=== PATIENT | female | born 1960 | race Caucasian/White ===

== ENCOUNTER → 2018-03-09 13:00 | Outpatient (CLI) | payer OTHER, BC, SELFPAY | DX: Z23 Encounter for immunization (principal) | CPT/HCPCS: 90471; 90686 ==

== ENCOUNTER → 2018-11-07 08:52 | Outpatient (CLI) | payer OTHER, BC, SELFPAY ==
[2018-11-07 10:47] LABS: Cholesterol 249 mg/dL (140-199); Glucose 87 mg/dL (80-110); HDL Cholesterol 81 mg/dL (40-60); LDL Cholesterol Calculated 149 mg/dL (<100); Triglycerides 93 mg/dL (35-150)
== END ==
PROVIDERS: PCP Physician Assistant; Visit Provider Physician Assistant
DX: Z13.1 Encounter for screening for diabetes mellitus (principal); Z13.220 Encounter for screening for lipoid disorders; Z13.6 Encounter for screening for cardiovascular disorders
CPT/HCPCS: 36415; 80061; 82947

== ENCOUNTER → 2019-04-10 09:01 | Outpatient (CLI) | payer OTHER, BC, SELFPAY | PROVIDERS: PCP Physician Assistant | DX: Z23 Encounter for immunization (principal) | CPT/HCPCS: 90471; 90686 ==

== ENCOUNTER → 2020-01-23 13:59 | Outpatient (CLI) | payer OTHER, BC, SELFPAY ==
--- NOTE | 2020-01-23 14:01 | DI.RAD.S_ITS ---
PROCEDURE: XR KNEE RT 3V INDICATIONS: R knee pain TECHNIQUE: Three views of the knee were acquired. COMPARISON: [facility], , KNEE 3V RIGHT, 04/18/2017, 14:14. FINDINGS: Bones: No fractures or dislocations. Progressive joint space loss in the medial compartment and increase in mild marginal spur formation compared to the prior study. New small lateral compartment spurring and progressive patellofemoral compartment spurring. No suspicious bony lesions. Soft tissues: No joint effusion. No suspicious soft tissue calcifications. IMPRESSION: Progressive tricompartment osteoarthritic changes, most pronounced in the medial compartment. Dictated by: Magda Gallegos M.D. on 01/23/2020 at 18:18 Approved by: Magda Gallegos M.D. on 01/23/2020 at 18:20
== END ==
PROVIDERS: PCP Family Medicine; Referring Provider Family Medicine; Visit Provider Family Medicine
DX: M17.11 Unilateral primary osteoarthritis, right knee (principal); M25.561 Pain in right knee; G89.29 Other chronic pain
CPT/HCPCS: 73562

== ENCOUNTER → 2020-01-24 08:17 | Outpatient (CLI) | payer OTHER, BC, SELFPAY ==
[2020-01-24 08:38] LABS: Add Manual Diff / Slide Review NO; Basophils Absolute Auto 100 /uL (0-100); Basophils Percent Auto 1.2 % (0-2); Eosinophils Absolute Auto 100 /uL (0-450); Eosinophils Percent Auto 3.3 % (2-4); Hematocrit 43.3 % (36-46); Hemoglobin 15.5 g/dL (12.0-16.0); Lymphocytes Absolute Auto 1200 /uL (1100-4500); Lymphocytes Percent Auto 28.1 % (25-40); Mean Corpuscular HGB Conc 35.7 % (30-36); Mean Corpuscular Hemoglobin 33.7 PG (26-34); Mean Corpuscular Volume 94.4 fL (80-100); Monocytes Absolute Auto 400 /uL (0-900); Monocytes Percent Auto 8.5 % (3-14); Neutrophils Absolute Auto 2600 /uL (1500-7000); Neutrophils Percent Auto 58.9 % (50-75); Platelet Count 152 X10^3/uL (150-400); Red Blood Cell Count 4.59 X10^6/uL (4.0-5.2); Red Cell Distribution Width 12.2 % (11.6-14.8); White Blood Cell Count 4.4 X10^3/uL (4.5-11.0)
[2020-01-24 08:58] LABS: BUN Creatinine Ratio 17.4 (6-22); Blood Urea Nitrogen 12 mg/dL (7-17); Calcium 9.5 mg/dL (8.4-10.2); Carbon Dioxide 27 mmol/L (22-32); Chloride 105 mmol/L (98-107); Cholesterol 231 mg/dL (140-199); Estimated Glomerular Filt Rate > 60.0 mL/min (>60); Glucose 96 mg/dL (80-110); HDL Cholesterol 85 mg/dL (40-60); HEMOLYSIS < 15 (0-50); LDL Cholesterol Calculated 127 mg/dL (<100); Sodium 139 mmol/L (137-145); Triglycerides 97 mg/dL (35-150)
== END ==
PROVIDERS: PCP Family Medicine; Referring Provider Family Medicine; Visit Provider Family Medicine
DX: Z13.220 Encounter for screening for lipoid disorders (principal); Z68.30 Body mass index [BMI] 30.0-30.9, adult
CPT/HCPCS: 36415; 80048; 80061; 85025

== ENCOUNTER → 2020-01-30 08:46 | Outpatient (CLI) | payer OTHER, BC, SELFPAY ==
--- NOTE | 2020-01-30 13:27 | DI.MRI.S_ITS ---
PROCEDURE: MR KNEE RT WO CON INDICATIONS: R knee pain TECHNIQUE: Noncontrast sagittal PD fast spin echo and T2 fast spin echo with fat saturation, sagittal 3-D FLASH with fat saturation; coronal T1 spin echo and PD fast spin echo with fat saturation, and axial PD fast spin echo with fat saturation through the knee. COMPARISON: [facility], MR, KNEE WITHOUT CONTRAST, 04/29/2017, 10:03. FINDINGS: Image quality: Excellent. Menisci: There is peripheral displacement of medial meniscus bowing medial collateral ligament. Suggestion of interval partial meniscectomy with truncated appearance of body and posterior horn of medial meniscus. Signal abnormality is seen in posterior horn medial meniscal remnant extending to the inferior articulating surface. No evidence of focal lateral meniscal tear is seen The meniscal root ligaments appear intact. Cruciate ligaments: The anterior and posterior cruciate ligaments appear intact. Medial structures: The medial collateral ligament appears intact. The posterior oblique ligament, semimembranosus tendon insertions, oblique popliteal ligament, and meniscocapsular junction appear intact. Visualized portions of the pes anserinus tendons appear normal. No abnormal bursal fluid. Lateral structures: The lateral collateral ligament, long and short heads of the biceps femoris tendon appear intact. The popliteus tendon appears normal; the popliteofibular ligament appears intact. The posterosuperior and anteroinferior popliteomeniscal fascicles appear intact. The arcuate and fabellofibular ligaments appear intact, on either side of the lateral inferior geniculate artery. Iliotibial band appears normal. Anterior structures: The quadriceps and patellar tendons appear intact. Patellar alignment is normal. No femoral trochlear dysplasia or ventral trochlear prominence. No edema in the infrapatellar fat pad. Bones and cartilage: Mild to moderate chondromalacia and tricompartmental osteoarthritis is seen most prominent in medial femoral tibial compartment. Prominent subcortical cyst formation in posterior and lateral portion of patella is seen. No fracture or dislocation. Joint space: There is small amount of joint effusion. Small to moderate size popliteal cyst is seen and measures up to 2.5 x 1.8 x 4.8 cm in size.. Normal appearing synovial plicae are incidentally noted. IMPRESSION: 1. Truncated appearance of posterior horn and body of medial meniscus suggestive of interval partial meniscectomy versus chronic complex medial meniscal tear.. Peripheral displacement of medial meniscal remanent. Suggestion of oblique tear involving posterior horn medial meniscal remanent extending to inferior articulating surface. No evidence of focal lateral meniscal tear. 2. Cruciate ligaments are intact. 3. Mild to moderate tricompartmental osteoarthritis and chondromalacia more prominent in medial femoral tibial compartment as above. Small joint fluid. Popliteal cyst as above. Dictated by: Roshan Rajan M.D. on 01/30/2020 at 14:46 Approved by: Roshan Rajan M.D. on 01/30/2020 at 14:51
[2020-02-01 12:08] LABS: Fecal Immunochemical Test Positive (Negative)
== END ==
PROVIDERS: PCP Family Medicine; Referring Provider Family Medicine; Visit Provider Family Medicine
DX: M25.561 Pain in right knee (principal); M17.11 Unilateral primary osteoarthritis, right knee; M94.261 Chondromalacia, right knee; M71.21 Synovial cyst of popliteal space [Baker], right knee; G89.29 Other chronic pain; Z12.11 Encounter for screening for malignant neoplasm of colon
CPT/HCPCS: 73721; 82274

== ENCOUNTER → 2020-03-22 | Outpatient (CLI) | payer OTHER, SELFPAY | PROVIDERS: PCP Family Medicine; Referring Provider Internal Medicine; Visit Provider Internal Medicine | DX: Z23 Encounter for immunization (principal) | CPT/HCPCS: 90471; 90686 ==

== ENCOUNTER → 2020-05-22 14:19 | Outpatient (CLI) | payer OTHER, SELFPAY ==
[2020-05-22] MEDS: COVID-19 VACC(MODERNA-1)/PF 100 MCG/0.5 ML VIAL IM (14:24)
== END ==
PROVIDERS: PCP Family Medicine; Visit Provider Internal Medicine
DX: Z23 Encounter for immunization (principal)
CPT/HCPCS: 0011A; 91301

== ENCOUNTER → 2020-06-20 15:03 | Outpatient (CLI) | payer OTHER, SELFPAY ==
[2020-06-20] MEDS: COVID-19 VACC #2, MRNA(MOD) 100 MCG/0.5 ML VIAL IM (15:08)
== END ==
PROVIDERS: PCP Family Medicine; Visit Provider Internal Medicine
DX: Z23 Encounter for immunization (principal)
CPT/HCPCS: 0012A; 91301

== ENCOUNTER → 2021-05-02 08:56 | Outpatient (CLI) | payer BC, SELFPAY ==
--- NOTE | 2021-05-02 08:57 | DI.MG.S_ITS ---
BILATERAL DIGITAL SCREENING MAMMOGRAM 3D/2D WITH CAD: 05/02/2021 CLINICAL: Routine screening. Baseline exam. No prior exams were available for comparison. There are scattered fibroglandular elements in both breasts. Current study was also evaluated with a Computer Aided Detection (CAD) system. No significant masses, calcifications, or other findings are seen in either breast. IMPRESSION: NEGATIVE There is no mammographic evidence of malignancy. A 1 year screening mammogram is recommended. This exam was interpreted at Station ID: [id number]. NOTE: For mammograms, a report in lay terms will be sent to the patient. Approximately 15% of breast malignancies will not be visualized mammographically. In the management of a palpable breast mass, a negative mammogram must not discourage biopsy of a clinically suspicious lesion. Electronically Signed By: Remy euceda/marilyn:05/04/2021 07:52:12 letter sent: Normal Exam ACR BI-RADS Category 1: Negative [id number]
== END ==
PROVIDERS: PCP Family Medicine; Referring Provider Family Medicine; Visit Provider Family Medicine
DX: Z12.31 Encounter for screening mammogram for malignant neoplasm of breast (principal)
CPT/HCPCS: 77063; 77067

== ENCOUNTER → 2022-03-04 11:44 | Outpatient (CLI) | payer BC, SELFPAY ==
[2022-03-04 12:21] LABS: Add Manual Diff / Slide Review NO; Basophils Absolute Auto 100 /uL (0-100); Basophils Percent Auto 1.2 % (0-2); Eosinophils Absolute Auto 200 /uL (0-450); Eosinophils Percent Auto 3.9 % (2-4); Hematocrit 40.3 % (36-46); Hemoglobin 14.2 g/dL (12.0-16.0); Lymphocytes Absolute Auto 1600 /uL (1100-4500); Lymphocytes Percent Auto 31.2 % (25-40); Mean Corpuscular HGB Conc 35.1 % (30-36); Mean Corpuscular Hemoglobin 31.4 PG (26-34); Mean Corpuscular Volume 89.3 fL (80-100); Monocytes Absolute Auto 400 /uL (0-900); Monocytes Percent Auto 7.8 % (3-14); Neutrophils Absolute Auto 2800 /uL (1500-7000); Neutrophils Percent Auto 55.9 % (50-75); Platelet Count 168 X10^3/uL (150-400); Red Blood Cell Count 4.52 X10^6/uL (4.0-5.2); Red Cell Distribution Width 12.6 % (11.6-14.8); White Blood Cell Count 5.1 X10^3/uL (4.5-11.0)
[2022-03-04 12:34] LABS: BUN Creatinine Ratio 19.8 (6-22); Blood Urea Nitrogen 16 mg/dL (7-17); Calcium 9.3 mg/dL (8.4-10.2); Carbon Dioxide 28 mmol/L (22-32); Chloride 106 mmol/L (98-107); Estimated Glomerular Filt Rate > 60 mL/min (>60); Glucose 91 mg/dL (80-110); HEMOLYSIS < 15 (0-50); Potassium 3.9 mmol/L (3.4-5.1); Sodium 141 mmol/L (137-145)
== END ==
PROVIDERS: Family Provider Family Medicine; PCP Family Medicine; Referring Provider Orthopaedic Surgery; Visit Provider Orthopaedic Surgery
DX: Z01.818 Encounter for other preprocedural examination (principal); Z01.812 Encounter for preprocedural laboratory examination
CPT/HCPCS: 36415; 80048; 85025; 93005; 93010

== ENCOUNTER → 2022-03-12 16:38 | Outpatient (CLI) | payer BC, SELFPAY | PROVIDERS: Family Provider Family Medicine; PCP Family Medicine; Referring Provider Internal Medicine; Visit Provider Internal Medicine | DX: Z23 Encounter for immunization (principal) | CPT/HCPCS: 90471; 90686 ==

== ENCOUNTER → 2022-04-05 11:04 | Outpatient (CLI) | payer BC, SELFPAY ==
[2022-04-05 12:10] LABS: COVID19 -Nasal RAPID Negative (Negative)
== END ==
PROVIDERS: Family Provider Family Medicine; PCP Family Medicine; Referring Provider Orthopaedic Surgery; Visit Provider Orthopaedic Surgery
DX: Z20.822 Contact with and (suspected) exposure to COVID-19 (principal)
CPT/HCPCS: 87635; C9803

== ENCOUNTER 2022-04-07 06:25 | Day surgery (SDC) | payer BC, SELFPAY ==
[2022-03-31 09:03] VITALS: BMI 29.7
[2022-04-07] VITALS (9 sets, daily range): BP systolic 122–146; BP diastolic 74–91; PULSE 83–106; RESP 12–21; TEMP 36.4–36.7; O2SAT 20–99; BMI 29.7
[2022-04-07] MEDS: LACTATED RINGERS 1,000 ML 42 ML IV ×2 (07:01→08:43)
--- NOTE | 2022-04-07 07:27 | PM.PREOP ---
Pre-operative Note COVID-19 COVID-19 status: Negative Result date/Date tested (Pos, Neg/Pending): 04/05/22 Interval Note History & Physical reviewed/Exam performed by Physician: Yes Changes to H&P: No
--- NOTE | 2022-04-07 07:29 | DI.RAD.S_ITS ---
PROCEDURE: XR KNEE RT 1TO2V INDICATIONS: post op total knee TECHNIQUE: 2 view(s) of the knee acquired. COMPARISON: [facility], , XR KNEE RT 3V, 01/23/2020, 13:57. FINDINGS: Bones: Patient is status post knee joint arthroplasty. Hardware components are in expected positions. Visualized bony structures are intact. Soft tissues: Overlying postoperative changes are noted. IMPRESSION: Total knee prosthesis in good position Approved by: Castillo Chávez M.D. on 04/07/2022 at 9:20
[2022-04-07] MEDS: CEFAZOLIN 2 GM/100 ML PREMIX 100 ML IV (07:58)
[2022-04-07] MEDS: TRANEXAMIC ACID 1,000 MG VIAL 2000 MG INJ ×2 (08:10→09:14)
--- NOTE | 2022-04-07 08:23 | SUR.OPER ---
Supine on padded OR bed, head on pillow, arms secured on padded arm boards at <90 degrees abduction, legs uncrossed, safety belt at abdomen, tape over blanket over lower left leg. DeMayo positioner used for right leg, padded and coban used to secure
[2022-04-07] MEDS: BUPIVACAINE 0.25% (PF) 60 ML, EPINEPHrine 0.3 MG INJ (08:39)
[2022-04-07] MEDS: BUPIVACAINE LIPOSOME 266 MG/20 ML VIAL INJ (08:40)
[2022-04-07] MEDS: MORPHINE 4 MG/ML INJ INJ (08:42)
--- NOTE | 2022-04-07 09:40 | PM.OP.1 ---
Operative Date/Time/Diagnoses Date of procedure: 04/07/22 Time of procedure: 09:41 Pre-op diagnosis: Right knee osteoarthritis Post-op diagnosis: same Procedure & Clinicians Procedure: Right total knee replacement Same procedure as scheduled: Yes Indications: The patient has had progressively worsening right knee pain with radiographic changes consistent with arthritis. Non-operative management has failed and the patient has requested total knee replacement. The risks, benefits and alternatives to surgery were discussed with the patient prior to proceeding. Risks discussed included, but were not limited to, failure to relieve pain, stiffness, infection, nerve damage, deep venous thrombosis, pulmonary embolism, stroke, coma, heart attack, permanent paralysis and , as well as the potential need for eventual revision of the prosthetic. Surgeon: Philippe Anthony Ceramics Technician: Tory Fish Click Yes if Unassisted: No Anesthesia Type: General, Spinal and Local Operative Notes Findings: Severe medial and patellofemoral osteoarthritis. Closure Type: primary Specimen(s): none sent Prosthetic devices, grafts, tissues, transplants, or devices: Implants used in this procedure were manufactured by the [employer] and included the BCS II Journey total knee replacement with a size 6 right Oxinium femoral component, a size 5 right non porous tibial base plate, a size 10 mm cross-linked polyethylene tibial insert and a 32 mm oval Rosy II patella. Applied: implant(s) Estimated Blood Loss (mL): 50 Blood products transfused: none Tourniquet time (min): 51 Procedure in detail: The patient was seen in the pre-operative area, where the patient identified the right knee as the operative site and this was marked with my initials. The patient received pre-operative antibiotics, and was taken to the operating room and placed on the operative table in the supine position. After satisfactory anesthesia, a manager multimedia out was performed. The right leg was encircled with a tourniquet about the proximal thigh, and the leg was prepared from the toes to the tourniquet with ChloroPrep in the usual fashion and draped through sterile drapes. The leg was elevated and exsanguinated with Eschmark bandage and the tourniquet inflated to 250 mmHg pressure. The knee was approached through an approximately 18 cm incision centered over the patella and carried into the knee through a medial parapatellar arthrotomy. The anterior osteophytes and soft tissues were removed. The rotational landmarks of Treece's line and the transepicondylar axis were marked on the femur with electrocautery, and intramedullary guide holes for the femur and tibia were created. The distal femoral cut was made in 6 degrees of valgus using the intramedullary guide at the primary cut setting. The proximal tibial cut was then made using the intramedullary guide, taking 9 mm of bone off the less involved side. The extension gap was checked and the rotation of the femoral component confirmed with the gap balancing system. The anterior, posterior and chamfer cuts were then made. The posterior osteophytes and soft tissues were then removed. The posterior capsule was injected with part of a mixture of 60 ml 0.25% Marcaine mixed with 20 ml Exparel and 4 mg of morphine for post-operative pain control. The remainder of this mixture was injected into the capsule and subcutaneous tissues during cement curing. The tibia was prepared with the rotation set by an extra medullary guide. Trial tibial and femoral components were then placed and the intercondylar notch cut through the femoral trial. Range of motion was 0-140 degrees, with good stability throughout the range. The patella was then cut to accommodate the patellar prosthetic. There was no need for a lateral release. The trials were then removed, and the femoral hole plugged with a bone plug. The bone was prepared with pulsatile lavage, and dried with a sponge. Cement was applied and the final prosthetics placed. Excess cement was removed during and after cement curing. After confirming there was no extruded cement posteriorly, the final tibial insert was placed. The knee was copiously irrigated and the tourniquet deflated. Hemostasis was obtained. The capsule was closed with interrupted # 2 polyester suture. The subcutaneous layer was closed with 3-0 Vicryl, and the skin with a running 3-0 V-Lock suture and Dermabond. An Aquacel Ag dressing was applied and the patient was taken to recovery having tolerated the procedure well. The services of Ms. Fish were required as a skilled surgical assistant certified to provide positioning, exposure and retraction to protect vital structures during this procedure. Without a skilled assistant guest services manager the procedure could not be completed expediently or safely. Complications: none Post-operative Condition: stable Disposition: PACU Plan for aftercare: The patient will be maintained on a standard total knee replacement protocol with weight bearing as tolerated. The patient will receive aspirin and sequential compression devices for DVT prophylaxis. The patient will be discharged home when safe for the home environment. Her plan is to discharge later today provided pain control is satisfactory.
[2022-04-07] MEDS: HYDROCODONE/ACET 5/325 TABLET 1 TAB PO (10:21)
[2022-04-07] MEDS: CELECOXIB 200 MG CAPSULE PO (10:21)
[2022-04-07] MEDS: PREGABALIN 75 MG CAPSULE PO (10:21)
[2022-04-07] MEDS: BENZOCAINE/MENTHOL 1 LOZ PKT 1 EACH PO (10:24)
--- NOTE | 2022-04-07 10:25 | SUR.PHASEI ---
1000 - Pt received to PACU after spinal/general anesthesia. Airway patent,self maintained. Report from Maryanne hagan and Dr Mendoza.
--- NOTE | 2022-04-07 10:25 | SUR.PHASEI ---
1025 - Medicated for pain as spinal wearing off.
--- NOTE | 2022-04-07 11:01 | SUR.PHASEII ---
Patient in phase 2 recovery in preparation to discharge home after spinal level reaches a safe level. Patient denies pain; patient's spinal level approximately between L1 and T 12; able to wiggle toes and bend left knee; unable to bend operative right knee or lift right leg. Bladder scan reveals 532 mls; 2000 mls of LR infused and now saline lock. Ndiaye catheter inserted to drain bladder. Tolerated well and has no sensation at all with insertion. Emptied 460 mls of urine. Notified of progress. will come sit with patient until ready for discharge. Patient denies pain at this time. Drinking beverage without difficulty.
[2022-04-07] MEDS: OXYCODONE IR 5 MG TABLET PO (12:04)
[2022-04-07] MEDS: ONDANSETRON 4 MG/2 ML INJ IV (12:04)
--- NOTE | 2022-04-07 12:17 | SUR.PHASEII ---
Patient able to ambulate around the bed with walker independently without stumbling or falling. States that she has sensation in her right knee now and that is is starting to ache. Medicated with one oxycodone and zofran 4 mg IV to prevent nausea. Taking PO fluids without difficulty. at bedside and supportive. Advised patient that as soon as she could void on her own, she would be discharged to home. V/U. No other needs voiced at this time.
--- NOTE | 2022-04-07 12:44 | SUR.PHASEII ---
Patient up to bathroom with walker independently. Able to void without difficulty. Home with in stable condition.
== END 2022-04-07 12:44 | disposition home or self-care (01) ==
LOC: OR 06:26 → AC 09:40 → OR 12:08
PROVIDERS: Family Provider Family Medicine; PCP Family Medicine; Referring Provider Orthopaedic Surgery; Visit Provider Orthopaedic Surgery
PROC: 0SRC0JZ Replacement of Right Knee Joint with Synthetic Substitute, Open Approach (ICD-10-PCS; CPT 27447; principal; 2022-04-07 07:45)
DX: M17.11 Unilateral primary osteoarthritis, right knee (principal)
CPT/HCPCS: 27447; 73560; C1776; C1713; C9290; J0171; J0690; J1100; J2250; J2270; J2405; J2704; J3010

== ENCOUNTER 2022-06-07 14:30 | Outpatient (RCR) | payer BC, SELFPAY ==
--- NOTE | 2022-03-31 15:59 | PT.OTN ---
Current Diagnoses Unilateral primary osteoarthritis, right knee (03/31/22) Physical Therapy Treatment Note PT-OP-A Visit Information Start: 03/31/22 15:42 Freq: Status: Active Protocol: Document 03/31/22 13:45 DCW (Rec: 03/31/22 15:59 DCW [id number]) Out-Patient Physical Therapy Visit Information Visit Information Visit Type Initial Evaluation Visit Start Time 13:45 Visit Stop Time 14:25 Total Visit Minutes 40 Visit Number 1 Number of PRODUCT SAFETY TESTER Visits 0 Evaluation Information Evaluation Date 03/31/22 PT-OP-B Current Condition Start: 03/31/22 15:42 Freq: Status: Active Protocol: Document 03/31/22 13:45 DCW (Rec: 03/31/22 15:59 DCW [id number]) Current Condition History of Current Condition Onset Date 04/07/22 Current Complaints Pre-op R TKA History of Current Condition Pt is a 61 year old female who presents to skilled therapy today for a pre-op assessment and information session prior to R TKA on 04/07/22. Pt has ongoing, worsening pain secondary to osteoarthritis in bilateral knees which has not responded to conservative treatment. Pt and attend today's session together. PT-OP-C Subjective Start: 03/31/22 15:42 Freq: Status: Active Protocol: Document 03/31/22 13:45 DCW (Rec: 03/31/22 15:59 DCW [id number]) OP-PT Subjective Patient Comments Patient Comments My surgeon said the first week or two is hell. Patient Questionnaires Lower Extremity Functional Scale LEFS Score 71/80 = 88.75% LEFS Impairment 1 to 19% Impaired (Score 63-79 ) PT-OP-M Strength Start: 03/31/22 15:42 Freq: Status: Active Protocol: Document 03/31/22 13:45 DCW (Rec: 03/31/22 15:59 DCW [id number]) Knee Strength Knee Manual Muscle Testing Right Flexion (S2) 5 Normal Extension (L3) 5 Normal Left Flexion (S2) 5 Normal Extension (L3) 5 Normal PT-OP-Q Treatments Start: 03/31/22 15:42 Freq: Status: Active Protocol: Document 03/31/22 13:45 DCW (Rec: 03/31/22 15:59 DCW [id number]) Self-Care/Home Management Treatment Education Other Education Pre-op R TKA education and training. Reviewed and demonstrated gait with FWW, sit<->stand from chair and toilet. Into/out of bed, Ice/ Elevation/HEP. Stairs. Into/ out of vehicle. PT-OP-T Assessment and Plan Start: 03/31/22 15:42 Freq: Status: Active Protocol: Document 03/31/22 13:45 DCW (Rec: 03/31/22 15:59 DCW [id number]) Physical Therapy Assessment Rehab Potential Rehabilitation Potential Excellent Evaluation Complexity Number of Personal Factors/Comorbidities 1-2 Number of Body Systems Impaired 1-2 Clinical Presentation at Evaluation Stable Assessment Summary Assessment Pt did very well with pre-op TKA/education session today. Pt demonstrated ability to ambulate properly with FWW for 150' and to ascend/descend stairs. Doing well practicing sit<->stand performance keeping right knee extended. Reviewed importance of getting knee straight, not sleeping with pillow under knee in flexed position. Specifically focused on HEP including ankle pumps, heel slides, extension stretch, and mobility/walking practice. Pt currently scheduled for return to out- patient therapy on 04/12/22, five days post-op. Will reassess pt function at this time. Physical Therapy Plan Frequency and Duration Frequency of Treatment 1x/Week Plan of Care Start Date 03/31/22 Plan of Care End Date 04/12/22 Next Visit Focus/Plan Next Note Type Re-Evaluation Next Visit Plan Post-op R TKA reassessment
--- NOTE | 2022-03-31 16:00 | PT.OPPOC ---
Physical, Occupational & Speech Therapy At [facility] Current Diagnoses Unilateral primary osteoarthritis, right knee (03/31/22) Visit Care Team Role Provider Type Kody Penaloza DO Family Provider Physician Primary Care Provider Specialty: Family Practice Address: [address] [place] [address], [id number] Email: Philippe Anthony MD Attending Provider Physician Referring Provider Specialty: Orthopedics Orthopedic Surgery Address: [address] [place] [address], [id number] Email: [email or web address] Plan Of Care PT-OP-T Assessment and Plan Start: 03/31/22 15:42 Freq: Status: Active Protocol: Document 03/31/22 13:45 DCW (Rec: 03/31/22 15:59 DCW [id number]) Physical Therapy Assessment Rehab Potential Rehabilitation Potential Excellent Evaluation Complexity Number of Personal Factors/Comorbidities 1-2 Number of Body Systems Impaired 1-2 Clinical Presentation at Evaluation Stable Assessment Summary Assessment Pt did very well with pre-op TKA/education session today. Pt demonstrated ability to ambulate properly with FWW for 150' and to ascend/descend stairs. Doing well practicing sit<->stand performance keeping right knee extended. Reviewed importance of getting knee straight, not sleeping with pillow under knee in flexed position. Specifically focused on HEP including ankle pumps, heel slides, extension stretch, and mobility/walking practice. Pt currently scheduled for return to out- patient therapy on 04/12/22, five days post-op. Will reassess pt function at this time. Physical Therapy Plan Frequency and Duration Frequency of Treatment 1x/Week Plan of Care Start Date 03/31/22 Plan of Care End Date 04/12/22 Next Visit Focus/Plan Next Note Type Re-Evaluation Next Visit Plan Post-op R TKA reassessment Plan of Care Dates Plan of Care Start Date 03/31/22 Plan of Care End Date 04/12/22 Electronically Signed by: Zurdo Gallego, PT 03/31/22 1600 If you are in agreement with this Plan of Care, please return a signed and dated copy. I have reviewed this Plan of Care and certify that the skilled therapy services above are required to meet the patient?s needs. Physician Signature Date Printed Name and Credentials Clinical Instructor Signature Printed Name and Credentials
--- NOTE | 2022-04-12 16:54 | PT.OTRE ---
Current Diagnoses Unilateral primary osteoarthritis, right knee (04/12/22) Past Medical History (Last Updated 03/31/22 @ 09:09 by Lyn Machuca RN) Arthritis BMI 30.0-30.9,adult Knee pain Osteoarthritis Screen for colon cancer Screening for breast cancer Screening for hyperlipidemia Surgical History (Last Updated 01/12/18 @ 11:44 by Tiara Armando LPN) No history of previous surgery Visit Care Team Role Provider Type Kody Penaloza DO Family Provider Physician Primary Care Provider Specialty: Family Practice Address: [address] [place] [address], [address] Email: Philippe Anthony MD Attending Provider Physician Referring Provider Specialty: Orthopedics Orthopedic Surgery Address: [address] [place] [address], [id number] Email: [email or web address] Re-Evaluation PT-OP-A Visit Information Start: 03/31/22 15:42 Freq: Status: Active Protocol: Document 04/12/22 13:45 DCW (Rec: 04/12/22 14:30 [facility] [id number]) Out-Patient Physical Therapy Visit Information Visit Information Visit Type Re-Evaluation Visit Start Time 13:45 Visit Stop Time 14:30 Total Visit Minutes 45 Visit Number 2 Number of SOFTWARE DEPLOYMENT ENGINEER Visits 0 Evaluation Information Evaluation Date 03/31/22 PT-OP-B Current Condition Start: 03/31/22 15:42 Freq: Status: Active Protocol: Document 04/12/22 13:45 DCW (Rec: 04/12/22 14:29 [facility] [id number]) Current Condition History of Current Condition Onset Date 04/07/22 Current Complaints R TKA History of Current Condition Pt is a 61 year old female who presents to skilled therapy today five days s/p R TKA. Pt has previously undergone a pre -op PT session. Notes surgery went well overall, has been trying to get up and walk around as much as she can. Reports pain has been 8/10 at worst over last two days, had to stop taking her pain pills because they didn't agree with me. PT-OP-C Subjective Start: 03/31/22 15:42 Freq: Status: Active Protocol: Document 04/12/22 13:45 DCW (Rec: 04/12/22 16:54 DCW [id number]) OP-PT Subjective Patient Comments Patient Comments I'm still trying to decide if I'm happy that I went through with this or not. PT-OP-E Functional Tests Start: 03/31/22 15:42 Freq: Status: Active Protocol: Document 04/12/22 13:45 DCW (Rec: 04/12/22 14:29 DCW [id number]) Functional Tests 6 Minute Walk Test Distance 505' Device Used FWW Comments 1.40 ft/sec Timed Up and Go (TUG) Score 20.17 /c FWW Comments 3-trial average (22.01, 19.57, 18.93) PT-OP-F Manual Assessment Start: 03/31/22 15:42 Freq: Status: Active Protocol: Document 04/12/22 13:45 DCW (Rec: 04/12/22 14:29 DCW [id number]) Manual Assessments Soft Tissue Assessment Soft Tissue Mobility Assessment Joint effusion, post-op bruising from ankle to mid- thigh. No redness, no increased warmth PT-OP-J Posture/Palpation/Skin Start: 03/31/22 15:42 Freq: Status: Active Protocol: Document 04/12/22 13:45 DCW (Rec: 04/12/22 14:29 DCW [id number]) Skin Assessment Circumference Measurement 10 cm inferior Location 10 cm inferior to R joint line Measurement (Centimeters) 39 Comments L = 35.3 joint line Location R joint line Measurement (Centimeters) 46.4 Comments L = 41.3 10 cm superior Location 10 cm superior to R joint line Measurement (Centimeters) 50 Comments L = 44.6 PT-OP-K Range of Motion Start: 03/31/22 15:42 Freq: Status: Active Protocol: Document 04/12/22 13:45 DCW (Rec: 04/12/22 14:29 DCW [id number]) Knee Goniometric Range of Motion Knee Measured in Degrees Right Patient Position Sitting Flexion Active (degrees) 54 Extension Active (degrees) 11 Left Patient Position Sitting Flexion Active (degrees) 123 Extension Active (degrees) 0 PT-OP-M Strength Start: 03/31/22 15:42 Freq: Status: Active Protocol: Document 04/12/22 13:45 DCW (Rec: 04/12/22 14:29 DCW [id number]) Knee Strength Knee Manual Muscle Testing Right Flexion (S2) 3+ Fair+ Extension (L3) 3- Fair- PT-OP-Q Treatments Start: 03/31/22 15:42 Freq: Status: Active Protocol: Document 04/12/22 13:45 DCW (Rec: 04/12/22 14:30 DCW [id number]) Cardio Equipment Recumbent Bicycle Duration (Minutes) 5 Seat Position 3 Other no full rotations Therapeutic Exercises Sitting Exercises Ankle pumps Sitting Exercise Name Ankle pumps Side bilateral LAQ Sitting Exercise Name LAQ Side right PT-OP-T Assessment and Plan Start: 03/31/22 15:42 Freq: Status: Active Protocol: Document 04/12/22 13:45 DCW (Rec: 04/12/22 16:54 DCW [id number]) Physical Therapy Assessment Impairments Impairments Activity Tolerance,Balance, Functional Activities, Functional Mobility,Gait, Integument,Pain,ROM,Soft Tissue Mobility,Strength Goals Three Impairment Pt scores as an increased falls risk, per TUG (20.17 /c FWW) Calculus Tutor Goal (LTG) Pt to improve TUG score to <13 seconds without an assistive device to demonstrate reduced falls risk. LTG Duration 06/12/22 Two Impairment Significant limitations in right knee ROM Intermediate Goal (LTG) Pt to improve right knee ROM to 0-120? in order to improve ability to ascend/descend stairs. LTG Duration 06/12/22 One Impairment Pt does not have an appropriate home exercise program Short Term Goal (STG) Pt to be independent and compliant with an appropriate HEP STG Duration 05/12/22 Assessment Summary Assessment Pt presents for re-evaluation today 5 days s/p R TKA. Pt presents as expected at this point post-op, maybe slightly less than expected knee flexion. Pt has been doing fairly well with post-op exercises, but admits that she could be doing more. Pt fairly limited with ambulation and mobility at this time secondary to post-operative pain. Pt ambulates using FWW with a step-through gait pattern, although significantly different step- length, right vs. left. Pt should benefit from skilled therapy focusing on improving knee ROM, strengthening, edema control, pain control, gait training, AD use, balance, and improved activity tolerance. Physical Therapy Plan Frequency and Duration Frequency of Treatment 2x/Week Plan of Care Start Date 04/12/22 Plan of Care End Date 06/12/22 Therapeutic Interventions Therapeutic Interventions Aquatic Therapy,Balance Training,Gait Training,Home Exercise Program,Joint Mobilizations,Manual Therapy, Neuromuscular Re-education, Patient/Caregiver Education, Self-Care/Home Management,Soft Tissue Mobilization, Therapeutic Activities, Therapeutic Exercises Next Visit Focus/Plan Next Note Type Treatment Note Next Visit Plan ROM, strengthening, joint mobilizations
--- NOTE | 2022-04-12 16:55 | PT.OPPOC ---
Physical, Occupational & Speech Therapy At [facility] Current Diagnoses Unilateral primary osteoarthritis, right knee (04/12/22) Visit Care Team Role Provider Type Kody Penaloza DO Family Provider Physician Primary Care Provider Specialty: Family Practice Address: [address] [place] [address], [id number] Email: Philippe Anthony MD Attending Provider Physician Referring Provider Specialty: Orthopedics Orthopedic Surgery Address: [address] [place] [address], [address] Email: [email or web address] Plan Of Care PT-OP-T Assessment and Plan Start: 03/31/22 15:42 Freq: Status: Active Protocol: Document 04/12/22 13:45 DCW (Rec: 04/12/22 16:54 DCW [id number]) Physical Therapy Assessment Impairments Impairments Activity Tolerance,Balance, Functional Activities, Functional Mobility,Gait, Integument,Pain,ROM,Soft Tissue Mobility,Strength Goals Three Impairment Pt scores as an increased falls risk, per TUG (20.17 /c FWW) Laborer Concrete Paving Goal (LTG) Pt to improve TUG score to <13 seconds without an assistive device to demonstrate reduced falls risk. LTG Duration 06/12/22 Two Impairment Significant limitations in right knee ROM Mcfp Goal (LTG) Pt to improve right knee ROM to 0-120? in order to improve ability to ascend/descend stairs. LTG Duration 06/12/22 One Impairment Pt does not have an appropriate home exercise program Short Term Goal (STG) Pt to be independent and compliant with an appropriate HEP STG Duration 05/12/22 Assessment Summary Assessment Pt presents for re-evaluation today 5 days s/p R TKA. Pt presents as expected at this point post-op, maybe slightly less than expected knee flexion. Pt has been doing fairly well with post-op exercises, but admits that she could be doing more. Pt fairly limited with ambulation and mobility at this time secondary to post-operative pain. Pt ambulates using FWW with a step-through gait pattern, although significantly different step- length, right vs. left. Pt should benefit from skilled therapy focusing on improving knee ROM, strengthening, edema control, pain control, gait training, AD use, balance, and improved activity tolerance. Physical Therapy Plan Frequency and Duration Frequency of Treatment 2x/Week Plan of Care Start Date 04/12/22 Plan of Care End Date 06/12/22 Therapeutic Interventions Therapeutic Interventions Aquatic Therapy,Balance Training,Gait Training,Home Exercise Program,Joint Mobilizations,Manual Therapy, Neuromuscular Re-education, Patient/Caregiver Education, Self-Care/Home Management,Soft Tissue Mobilization, Therapeutic Activities, Therapeutic Exercises Next Visit Focus/Plan Next Note Type Treatment Note Next Visit Plan ROM, strengthening, joint mobilizations Plan of Care Dates Plan of Care Start Date 04/12/22 Plan of Care End Date 06/12/22 Electronically Signed by: Zurdo Gallego, PT 04/12/22 9639 If you are in agreement with this Plan of Care, please return a signed and dated copy. I have reviewed this Plan of Care and certify that the skilled therapy services above are required to meet the patient?s needs. Physician Signature Date Printed Name and Credentials Clinical Instructor Signature Printed Name and Credentials
--- NOTE | 2022-04-14 14:29 | PT.OTN ---
Current Diagnoses Unilateral primary osteoarthritis, right knee (04/14/22) Physical Therapy Treatment Note PT-OP-A Visit Information Start: 03/31/22 15:42 Freq: Status: Active Protocol: Document 04/14/22 13:45 DCW (Rec: 04/14/22 14:28 DCW [id number]) Out-Patient Physical Therapy Visit Information Visit Information Visit Type Treatment Note Visit Start Time 13:45 Visit Stop Time 14:30 Total Visit Minutes 45 Visit Number 3 Number of ASSISTANT ATHLETIC TRAINER Visits 0 Evaluation Information Evaluation Date 03/31/22 PT-OP-B Current Condition Start: 03/31/22 15:42 Freq: Status: Active Protocol: Document 04/12/22 13:45 DCW (Rec: 04/12/22 14:29 DCW [id number]) Current Condition History of Current Condition Onset Date 04/07/22 Current Complaints R TKA History of Current Condition Pt is a 61 year old female who presents to skilled therapy today five days s/p R TKA. Pt has previously undergone a pre -op PT session. Notes surgery went well overall, has been trying to get up and walk around as much as she can. Reports pain has been 8/10 at worst over last two days, had to stop taking her pain pills because they didn't agree with me. PT-OP-C Subjective Start: 03/31/22 15:42 Freq: Status: Active Protocol: Document 04/14/22 13:45 DCW (Rec: 04/14/22 14:28 DCW [id number]) OP-PT Subjective Patient Comments Patient Comments I'm usually a very active person, so this is kind of driving me crazy. PT-OP-E Functional Tests Start: 03/31/22 15:42 Freq: Status: Active Protocol: Document 04/12/22 13:45 DCW (Rec: 04/12/22 14:29 DCW [id number]) Functional Tests 6 Minute Walk Test Distance 505' Device Used FWW Comments 1.40 ft/sec Timed Up and Go (TUG) Score 20.17 /c FWW Comments 3-trial average (22.01, 19.57, 18.93) PT-OP-F Manual Assessment Start: 03/31/22 15:42 Freq: Status: Active Protocol: Document 04/12/22 13:45 DCW (Rec: 04/12/22 14:29 DCW [id number]) Manual Assessments Soft Tissue Assessment Soft Tissue Mobility Assessment Joint effusion, post-op bruising from ankle to mid- thigh. No redness, no increased warmth PT-OP-J Posture/Palpation/Skin Start: 03/31/22 15:42 Freq: Status: Active Protocol: Document 04/12/22 13:45 DCW (Rec: 04/12/22 14:29 DCW [id number]) Skin Assessment Circumference Measurement 10 cm inferior Location 10 cm inferior to R joint line Measurement (Centimeters) 39 Comments L = 35.3 joint line Location R joint line Measurement (Centimeters) 46.4 Comments L = 41.3 10 cm superior Location 10 cm superior to R joint line Measurement (Centimeters) 50 Comments L = 44.6 PT-OP-K Range of Motion Start: 03/31/22 15:42 Freq: Status: Active Protocol: Document 04/12/22 13:45 DCW (Rec: 04/12/22 14:29 DCW [id number]) Knee Goniometric Range of Motion Knee Right Patient Position Sitting Flexion Active (degrees) 54 Extension Active (degrees) 11 Left Patient Position Sitting Flexion Active (degrees) 123 Extension Active (degrees) 0 PT-OP-M Strength Start: 03/31/22 15:42 Freq: Status: Active Protocol: Document 04/12/22 13:45 DCW (Rec: 04/12/22 14:29 DCW [id number]) Knee Strength Knee Manual Muscle Testing Right Flexion (S2) 3+ Fair+ Extension (L3) 3- Fair- PT-OP-Q Treatments Start: 03/31/22 15:42 Freq: Status: Active Protocol: Document 04/14/22 13:45 DCW (Rec: 04/14/22 14:28 DCW [id number]) Cardio Equipment Recumbent Bicycle Duration (Minutes) 6 Seat Position 3 Other no full rotations Gym Equipment Therapeutic Ball Knee flexion Exercise Details Knee flexion /c strap assist Ball Size/Color Blue - 45 cm Body Position Supine Therapeutic Exercises Supine Exercises SAQ Supine Exercise Name SAQ Side right Heel Slides Supine Exercise Name Heel slides Side right Equipment Used slide sheet Windshield wipers Supine Exercise Name Hip Abduction Side right Equipment Used slide sheet Sitting Exercises Ankle pumps Sitting Exercise Name Ankle pumps Side bilateral LAQ Sitting Exercise Name LAQ Side right Standing Exercises TKE Standing Exercise Name TKE Side right Resistance Lv 2 Step-up Standing Exercise Name Step-ups Side right Equipment Used 4 step Flexion stretch Standing Exercise Name Step stretch - knee flexion Side right PT-OP-T Assessment and Plan Start: 03/31/22 15:42 Freq: Status: Active Protocol: Document 04/14/22 13:45 DCW (Rec: 04/14/22 14:28 DCW [id number]) Physical Therapy Assessment Impairments Impairments Activity Tolerance,Balance, Functional Activities, Functional Mobility,Gait, Integument,Pain,ROM,Soft Tissue Mobility,Strength Goals Three Impairment Pt scores as an increased falls risk, per TUG (20.17 /c FWW) Retirement Goal (LTG) Pt to improve TUG score to <13 seconds without an assistive device to demonstrate reduced falls risk. LTG Duration 06/12/22 Two Impairment Significant limitations in right knee ROM Retirement Goal (LTG) Pt to improve right knee ROM to 0-120? in order to improve ability to ascend/descend stairs. LTG Duration 06/12/22 One Impairment Pt does not have an appropriate home exercise program Short Term Goal (STG) Pt to be independent and compliant with an appropriate HEP STG Duration 05/12/22 Assessment Summary Assessment Pt very resistant to knee flexion, unable to tolerate more than ~55? flexion at this time, although is doing well with extension. Pt displays very strong pain reaction with all activities. Physical Therapy Plan Frequency and Duration Frequency of Treatment 2x/Week Plan of Care Start Date 04/12/22 Plan of Care End Date 06/12/22 Therapeutic Interventions Therapeutic Interventions Aquatic Therapy,Balance Training,Gait Training,Home Exercise Program,Joint Mobilizations,Manual Therapy, Neuromuscular Re-education, Patient/Caregiver Education, Self-Care/Home Management,Soft Tissue Mobilization, Therapeutic Activities, Therapeutic Exercises Next Visit Focus/Plan Next Note Type Treatment Note Next Visit Plan ROM, strengthening, joint mobilizations
--- NOTE | 2022-04-19 12:01 | PT.OTN ---
Current Diagnoses Unilateral primary osteoarthritis, right knee (04/19/22) Physical Therapy Treatment Note PT-OP-A Visit Information Start: 03/31/22 15:42 Freq: Status: Active Protocol: Document 04/19/22 11:15 DCW (Rec: 04/19/22 12:01 DCW [id number]) Out-Patient Physical Therapy Visit Information Visit Information Visit Type Treatment Note Visit Start Time 11:15 Visit Stop Time 12:00 Total Visit Minutes 45 Visit Number 4 Number of SYS DIR Visits 0 Evaluation Information Evaluation Date 03/31/22 PT-OP-B Current Condition Start: 03/31/22 15:42 Freq: Status: Active Protocol: Document 04/12/22 13:45 DCW (Rec: 04/12/22 14:29 DCW [id number]) Current Condition History of Current Condition Onset Date 04/07/22 Current Complaints R TKA History of Current Condition Pt is a 61 year old female who presents to skilled therapy today five days s/p R TKA. Pt has previously undergone a pre -op PT session. Notes surgery went well overall, has been trying to get up and walk around as much as she can. Reports pain has been 8/10 at worst over last two days, had to stop taking her pain pills because they didn't agree with me. PT-OP-C Subjective Start: 03/31/22 15:42 Freq: Status: Active Protocol: Document 04/19/22 11:15 DCW (Rec: 04/19/22 12:01 DCW [id number]) OP-PT Subjective Patient Comments Patient Comments It hurt really bad last night , but that's life. PT-OP-E Functional Tests Start: 03/31/22 15:42 Freq: Status: Active Protocol: Document 04/12/22 13:45 DCW (Rec: 04/12/22 14:29 DCW [id number]) Functional Tests 6 Minute Walk Test Distance 505' Device Used FWW Comments 1.40 ft/sec Timed Up and Go (TUG) Score 20.17 /c FWW Comments 3-trial average (22.01, 19.57, 18.93) PT-OP-F Manual Assessment Start: 03/31/22 15:42 Freq: Status: Active Protocol: Document 04/12/22 13:45 DCW (Rec: 04/12/22 14:29 DCW [id number]) Manual Assessments Soft Tissue Assessment Soft Tissue Mobility Assessment Joint effusion, post-op bruising from ankle to mid- thigh. No redness, no increased warmth PT-OP-J Posture/Palpation/Skin Start: 03/31/22 15:42 Freq: Status: Active Protocol: Document 04/12/22 13:45 DCW (Rec: 04/12/22 14:29 DCW [id number]) Skin Assessment Circumference Measurement 10 cm inferior Location 10 cm inferior to R joint line Measurement (Centimeters) 39 Comments L = 35.3 joint line Location R joint line Measurement (Centimeters) 46.4 Comments L = 41.3 10 cm superior Location 10 cm superior to R joint line Measurement (Centimeters) 50 Comments L = 44.6 PT-OP-K Range of Motion Start: 03/31/22 15:42 Freq: Status: Active Protocol: Document 04/12/22 13:45 DCW (Rec: 04/12/22 14:29 DCW [id number]) Knee Goniometric Range of Motion Knee Right Patient Position Sitting Flexion Active (degrees) 54 Extension Active (degrees) 11 Left Patient Position Sitting Flexion Active (degrees) 123 Extension Active (degrees) 0 PT-OP-M Strength Start: 03/31/22 15:42 Freq: Status: Active Protocol: Document 04/12/22 13:45 DCW (Rec: 04/12/22 14:29 DCW [id number]) Knee Strength Knee Manual Muscle Testing Right Flexion (S2) 3+ Fair+ Extension (L3) 3- Fair- PT-OP-Q Treatments Start: 03/31/22 15:42 Freq: Status: Active Protocol: Document 04/19/22 11:15 DCW (Rec: 04/19/22 12:01 DCW [id number]) Cardio Equipment Recumbent Bicycle Duration (Minutes) 6 Seat Position 3 Other no full rotations Gym Equipment Shuttle Recovery Bilateral Squats Details Hold in flexion Resistance 25# Therapeutic Exercises Sitting Exercises Hamstring Curls Sitting Exercise Name HS curls Side right Resistance Lv 2 Standing Exercises Hip Extension Standing Exercise Name Hip Extension Side bilateral Resistance Red TKE Standing Exercise Name TKE Side right Resistance Lv 2 Step-up Standing Exercise Name Step-ups Side right Equipment Used 4 step Flexion stretch Standing Exercise Name Step stretch - knee flexion Side right Equipment Used 4 steps Other Exercises Resisted Ambulation Other Exercise Name Side-stepping Resistance Red Gait Training Gait Activity SPC Description SPC Gait Device Used SPC Level of Assistance SBA Distance/Duration 180' Comments VCs for sequencing, UE use, step length PT-OP-T Assessment and Plan Start: 03/31/22 15:42 Freq: Status: Active Protocol: Document 04/19/22 11:15 DCW (Rec: 04/19/22 12:01 DCW [id number]) Physical Therapy Assessment Impairments Impairments Activity Tolerance,Balance, Functional Activities, Functional Mobility,Gait, Integument,Pain,ROM,Soft Tissue Mobility,Strength Goals Three Impairment Pt scores as an increased falls risk, per TUG (20.17 /c FWW) Records Coordinator Goal (LTG) Pt to improve TUG score to <13 seconds without an assistive device to demonstrate reduced falls risk. LTG Duration 06/12/22 Two Impairment Significant limitations in right knee ROM Records Coordinator Goal (LTG) Pt to improve right knee ROM to 0-120? in order to improve ability to ascend/descend stairs. LTG Duration 06/12/22 One Impairment Pt does not have an appropriate home exercise program Short Term Goal (STG) Pt to be independent and compliant with an appropriate HEP STG Duration 05/12/22 Assessment Summary Assessment Pt knee moving significantly better today, able to lift foot up into bike pedals without assistance today, showing improved, though still quite limited, flexion. Physical Therapy Plan Frequency and Duration Frequency of Treatment 2x/Week Plan of Care Start Date 04/12/22 Plan of Care End Date 06/12/22 Therapeutic Interventions Therapeutic Interventions Aquatic Therapy,Balance Training,Gait Training,Home Exercise Program,Joint Mobilizations,Manual Therapy, Neuromuscular Re-education, Patient/Caregiver Education, Self-Care/Home Management,Soft Tissue Mobilization, Therapeutic Activities, Therapeutic Exercises Next Visit Focus/Plan Next Note Type Treatment Note Next Visit Plan ROM, strengthening, joint mobilizations
--- NOTE | 2022-04-21 12:00 | PT.OTN ---
Current Diagnoses Unilateral primary osteoarthritis, right knee (04/21/22) Physical Therapy Treatment Note PT-OP-A Visit Information Start: 03/31/22 15:42 Freq: Status: Active Protocol: Document 04/21/22 11:15 DCW (Rec: 04/21/22 12:00 DCW [id number]) Out-Patient Physical Therapy Visit Information Visit Information Visit Type Treatment Note Visit Start Time 11:15 Visit Stop Time 12:00 Total Visit Minutes 45 Visit Number 5 Number of MEMBERSHIP SALES ADVISOR Visits 0 Evaluation Information Evaluation Date 03/31/22 PT-OP-B Current Condition Start: 03/31/22 15:42 Freq: Status: Active Protocol: Document 04/12/22 13:45 DCW (Rec: 04/12/22 14:29 DCW [id number]) Current Condition History of Current Condition Onset Date 04/07/22 Current Complaints R TKA History of Current Condition Pt is a 61 year old female who presents to skilled therapy today five days s/p R TKA. Pt has previously undergone a pre -op PT session. Notes surgery went well overall, has been trying to get up and walk around as much as she can. Reports pain has been 8/10 at worst over last two days, had to stop taking her pain pills because they didn't agree with me. PT-OP-C Subjective Start: 03/31/22 15:42 Freq: Status: Active Protocol: Document 04/21/22 11:15 DCW (Rec: 04/21/22 12:00 DCW [id number]) OP-PT Subjective Patient Comments Patient Comments Notes she is having a lot of tactile sensitivity in her knee, which is impacting her ability to sleep. PT-OP-E Functional Tests Start: 03/31/22 15:42 Freq: Status: Active Protocol: Document 04/12/22 13:45 DCW (Rec: 04/12/22 14:29 DCW [id number]) Functional Tests 6 Minute Walk Test Distance 505' Device Used FWW Comments 1.40 ft/sec Timed Up and Go (TUG) Score 20.17 /c FWW Comments 3-trial average (22.01, 19.57, 18.93) PT-OP-F Manual Assessment Start: 03/31/22 15:42 Freq: Status: Active Protocol: Document 04/12/22 13:45 DCW (Rec: 04/12/22 14:29 DCW [id number]) Manual Assessments Soft Tissue Assessment Soft Tissue Mobility Assessment Joint effusion, post-op bruising from ankle to mid- thigh. No redness, no increased warmth PT-OP-J Posture/Palpation/Skin Start: 03/31/22 15:42 Freq: Status: Active Protocol: Document 04/12/22 13:45 DCW (Rec: 04/12/22 14:29 DCW [id number]) Skin Assessment Circumference Measurement 10 cm inferior Location 10 cm inferior to R joint line Measurement (Centimeters) 39 Comments L = 35.3 joint line Location R joint line Measurement (Centimeters) 46.4 Comments L = 41.3 10 cm superior Location 10 cm superior to R joint line Measurement (Centimeters) 50 Comments L = 44.6 PT-OP-K Range of Motion Start: 03/31/22 15:42 Freq: Status: Active Protocol: Document 04/12/22 13:45 DCW (Rec: 04/12/22 14:29 DCW [id number]) Knee Goniometric Range of Motion Knee Right Patient Position Sitting Flexion Active (degrees) 54 Extension Active (degrees) 11 Left Patient Position Sitting Flexion Active (degrees) 123 Extension Active (degrees) 0 PT-OP-M Strength Start: 03/31/22 15:42 Freq: Status: Active Protocol: Document 04/12/22 13:45 DCW (Rec: 04/12/22 14:29 DCW [id number]) Knee Strength Knee Manual Muscle Testing Right Flexion (S2) 3+ Fair+ Extension (L3) 3- Fair- PT-OP-Q Treatments Start: 03/31/22 15:42 Freq: Status: Active Protocol: Document 04/21/22 11:15 DCW (Rec: 04/21/22 12:00 DCW [id number]) Cardio Equipment Recumbent Bicycle Duration (Minutes) 6 Seat Position 3 Other no full rotations Gym Equipment Shuttle Recovery Bilateral Squats Details Hold in flexion Resistance 25# Reps/Time Able to get to 81? flexion Therapeutic Exercises Standing Exercises Hip Extension Standing Exercise Name Hip Extension Side bilateral Resistance Red Step-up Standing Exercise Name Step-ups Side right Equipment Used 6 step Flexion stretch Standing Exercise Name Step stretch - knee flexion Side right Equipment Used 6 steps Other Exercises Resisted Ambulation Other Exercise Name Side-stepping Resistance Red Manual Therapy Treatment Joint Mobilizations Knee Joint R Knee Direction P->A Grade III Body Position Hooklying PT-OP-T Assessment and Plan Start: 03/31/22 15:42 Freq: Status: Active Protocol: Document 04/21/22 11:15 DCW (Rec: 04/21/22 12:00 DCW [id number]) Physical Therapy Assessment Impairments Impairments Activity Tolerance,Balance, Functional Activities, Functional Mobility,Gait, Integument,Pain,ROM,Soft Tissue Mobility,Strength Goals Three Impairment Pt scores as an increased falls risk, per TUG (20.17 /c FWW) Solar Project Manager Goal (LTG) Pt to improve TUG score to <13 seconds without an assistive device to demonstrate reduced falls risk. LTG Duration 06/12/22 Two Impairment Significant limitations in right knee ROM Solar Project Manager Goal (LTG) Pt to improve right knee ROM to 0-120? in order to improve ability to ascend/descend stairs. LTG Duration 06/12/22 One Impairment Pt does not have an appropriate home exercise program Short Term Goal (STG) Pt to be independent and compliant with an appropriate HEP STG Duration 05/12/22 Assessment Summary Assessment Pt showing improved knee flexion during gait, although actual ROM is still fairly limited. Improving pain tolerance, has started performing more senior materials planner. Physical Therapy Plan Frequency and Duration Frequency of Treatment 2x/Week Plan of Care Start Date 04/12/22 Plan of Care End Date 06/12/22 Therapeutic Interventions Therapeutic Interventions Aquatic Therapy,Balance Training,Gait Training,Home Exercise Program,Joint Mobilizations,Manual Therapy, Neuromuscular Re-education, Patient/Caregiver Education, Self-Care/Home Management,Soft Tissue Mobilization, Therapeutic Activities, Therapeutic Exercises Next Visit Focus/Plan Next Note Type Treatment Note Next Visit Plan ROM, strengthening, joint mobilizations
--- NOTE | 2022-04-26 12:02 | PT.OTN ---
Current Diagnoses Unilateral primary osteoarthritis, right knee (04/26/22) Physical Therapy Treatment Note PT-OP-A Visit Information Start: 03/31/22 15:42 Freq: Status: Active Protocol: Document 04/26/22 11:15 DCW (Rec: 04/26/22 12:02 DCW [id number]) Out-Patient Physical Therapy Visit Information Visit Information Visit Type Treatment Note Visit Start Time 11:15 Visit Stop Time 12:00 Total Visit Minutes 45 Visit Number 6 Number of LINE MANAGER Visits 0 Evaluation Information Evaluation Date 03/31/22 PT-OP-B Current Condition Start: 03/31/22 15:42 Freq: Status: Active Protocol: Document 04/12/22 13:45 DCW (Rec: 04/12/22 14:29 DCW [id number]) Current Condition History of Current Condition Onset Date 04/07/22 Current Complaints R TKA History of Current Condition Pt is a 61 year old female who presents to skilled therapy today five days s/p R TKA. Pt has previously undergone a pre -op PT session. Notes surgery went well overall, has been trying to get up and walk around as much as she can. Reports pain has been 8/10 at worst over last two days, had to stop taking her pain pills because they didn't agree with me. PT-OP-C Subjective Start: 03/31/22 15:42 Freq: Status: Active Protocol: Document 04/26/22 11:15 DCW (Rec: 04/26/22 12:02 DCW [id number]) OP-PT Subjective Patient Comments Patient Comments Pt got her bandage off last week, feels like her knee is moving a little better now. Still bothers her most during the night. PT-OP-E Functional Tests Start: 03/31/22 15:42 Freq: Status: Active Protocol: Document 04/12/22 13:45 DCW (Rec: 04/12/22 14:29 DCW [id number]) Functional Tests 6 Minute Walk Test Distance 505' Device Used FWW Comments 1.40 ft/sec Timed Up and Go (TUG) Score 20.17 /c FWW Comments 3-trial average (22.01, 19.57, 18.93) PT-OP-F Manual Assessment Start: 03/31/22 15:42 Freq: Status: Active Protocol: Document 04/12/22 13:45 DCW (Rec: 04/12/22 14:29 DCW [id number]) Manual Assessments Soft Tissue Assessment Soft Tissue Mobility Assessment Joint effusion, post-op bruising from ankle to mid- thigh. No redness, no increased warmth PT-OP-J Posture/Palpation/Skin Start: 03/31/22 15:42 Freq: Status: Active Protocol: Document 04/12/22 13:45 DCW (Rec: 04/12/22 14:29 DCW [id number]) Skin Assessment Circumference Measurement 10 cm inferior Location 10 cm inferior to R joint line Measurement (Centimeters) 39 Comments L = 35.3 joint line Location R joint line Measurement (Centimeters) 46.4 Comments L = 41.3 10 cm superior Location 10 cm superior to R joint line Measurement (Centimeters) 50 Comments L = 44.6 PT-OP-K Range of Motion Start: 03/31/22 15:42 Freq: Status: Active Protocol: Document 04/12/22 13:45 DCW (Rec: 04/12/22 14:29 DCW [id number]) Knee Goniometric Range of Motion Knee Right Patient Position Sitting Flexion Active (degrees) 54 Extension Active (degrees) 11 Left Patient Position Sitting Flexion Active (degrees) 123 Extension Active (degrees) 0 PT-OP-M Strength Start: 03/31/22 15:42 Freq: Status: Active Protocol: Document 04/12/22 13:45 DCW (Rec: 04/12/22 14:29 DCW [id number]) Knee Strength Knee Manual Muscle Testing Right Flexion (S2) 3+ Fair+ Extension (L3) 3- Fair- PT-OP-Q Treatments Start: 03/31/22 15:42 Freq: Status: Active Protocol: Document 04/26/22 11:15 DCW (Rec: 04/26/22 12:02 DCW [id number]) Cardio Equipment Recumbent Bicycle Duration (Minutes) 6 Seat Position 3 Other no full rotations Gym Equipment Shuttle Recovery Bilateral Squats Details Hold in flexion Resistance 37# Reps/Time Able to get to 90? flexion Therapeutic Exercises Standing Exercises TKE Standing Exercise Name TKE Side right Resistance Lv 2 Step-up Standing Exercise Name Step-ups Side right Equipment Used 6 step Flexion stretch Standing Exercise Name Step stretch - knee flexion Side right Equipment Used 6 steps Gait Training Gait Activity Without AD Description Level ground ambulation Device Used none Level of Assistance I Comments VCs for stride length, decrease limp, increased knee flexion Manual Therapy Treatment Joint Mobilizations Knee Joint R Knee Direction P->A Grade III Body Position Hooklying Neuro Re-Education Treatment Balance Activities SLS Details SLS Surface firm Equipment // bars Tandem stance Details Tandem Stance Equipment // bars BOSU lunge Details BOSU Lunge Surface Blue BOSU PT-OP-T Assessment and Plan Start: 03/31/22 15:42 Freq: Status: Active Protocol: Document 04/26/22 11:15 DCW (Rec: 04/26/22 12:02 DCW [id number]) Physical Therapy Assessment Impairments Impairments Activity Tolerance,Balance, Functional Activities, Functional Mobility,Gait, Integument,Pain,ROM,Soft Tissue Mobility,Strength Goals Three Impairment Pt scores as an increased falls risk, per TUG (20.17 /c FWW) Wellness Trainer Goal (LTG) Pt to improve TUG score to <13 seconds without an assistive device to demonstrate reduced falls risk. LTG Duration 06/12/22 Two Impairment Significant limitations in right knee ROM Mcc Goal (LTG) Pt to improve right knee ROM to 0-120? in order to improve ability to ascend/descend stairs. LTG Duration 06/12/22 One Impairment Pt does not have an appropriate home exercise program Short Term Goal (STG) Pt to be independent and compliant with an appropriate HEP STG Duration 05/12/22 Assessment Summary Assessment Pt showing good progress overall, knee flexion continues to be her biggest limiting factor, but has been improving over the past week. Pt requires frequent reminders about trying to limit compensation by using left leg and arms to help lift right leg into position. Physical Therapy Plan Frequency and Duration Frequency of Treatment 2x/Week Plan of Care Start Date 04/12/22 Plan of Care End Date 06/12/22 Therapeutic Interventions Therapeutic Interventions Aquatic Therapy,Balance Training,Gait Training,Home Exercise Program,Joint Mobilizations,Manual Therapy, Neuromuscular Re-education, Patient/Caregiver Education, Self-Care/Home Management,Soft Tissue Mobilization, Therapeutic Activities, Therapeutic Exercises Next Visit Focus/Plan Next Note Type Treatment Note Next Visit Plan ROM, strengthening, joint mobilizations
--- NOTE | 2022-04-28 12:01 | PT.OTN ---
Current Diagnoses Unilateral primary osteoarthritis, right knee (04/28/22) Physical Therapy Treatment Note PT-OP-A Visit Information Start: 03/31/22 15:42 Freq: Status: Active Protocol: Document 04/28/22 11:15 DCW (Rec: 04/28/22 12:00 DCW [id number]) Out-Patient Physical Therapy Visit Information Visit Information Visit Type Treatment Note Visit Start Time 11:15 Visit Stop Time 12:00 Total Visit Minutes 45 Visit Number 7 Number of ADMISSIONS MANAGER RN Visits 0 Evaluation Information Evaluation Date 03/31/22 PT-OP-B Current Condition Start: 03/31/22 15:42 Freq: Status: Active Protocol: Document 04/12/22 13:45 DCW (Rec: 04/12/22 14:29 DCW [id number]) Current Condition History of Current Condition Onset Date 04/07/22 Current Complaints R TKA History of Current Condition Pt is a 61 year old female who presents to skilled therapy today five days s/p R TKA. Pt has previously undergone a pre -op PT session. Notes surgery went well overall, has been trying to get up and walk around as much as she can. Reports pain has been 8/10 at worst over last two days, had to stop taking her pain pills because they didn't agree with me. PT-OP-C Subjective Start: 03/31/22 15:42 Freq: Status: Active Protocol: Document 04/28/22 11:15 DCW (Rec: 04/28/22 12:00 DCW [id number]) OP-PT Subjective Patient Comments Patient Comments Pt notes she is still struggling with heel slides at home, her knee isn't bending as far as she expects it to. PT-OP-E Functional Tests Start: 03/31/22 15:42 Freq: Status: Active Protocol: Document 04/12/22 13:45 DCW (Rec: 04/12/22 14:29 DCW [id number]) Functional Tests 6 Minute Walk Test Distance 505' Device Used FWW Comments 1.40 ft/sec Timed Up and Go (TUG) Score 20.17 /c FWW Comments 3-trial average (22.01, 19.57, 18.93) PT-OP-F Manual Assessment Start: 03/31/22 15:42 Freq: Status: Active Protocol: Document 04/12/22 13:45 DCW (Rec: 04/12/22 14:29 DCW [id number]) Manual Assessments Soft Tissue Assessment Soft Tissue Mobility Assessment Joint effusion, post-op bruising from ankle to mid- thigh. No redness, no increased warmth PT-OP-J Posture/Palpation/Skin Start: 03/31/22 15:42 Freq: Status: Active Protocol: Document 04/12/22 13:45 DCW (Rec: 04/12/22 14:29 DCW [id number]) Skin Assessment Circumference Measurement 10 cm inferior Location 10 cm inferior to R joint line Measurement (Centimeters) 39 Comments L = 35.3 joint line Location R joint line Measurement (Centimeters) 46.4 Comments L = 41.3 10 cm superior Location 10 cm superior to R joint line Measurement (Centimeters) 50 Comments L = 44.6 PT-OP-K Range of Motion Start: 03/31/22 15:42 Freq: Status: Active Protocol: Document 04/12/22 13:45 DCW (Rec: 04/12/22 14:29 DCW [id number]) Knee Goniometric Range of Motion Knee Right Patient Position Sitting Flexion Active (degrees) 54 Extension Active (degrees) 11 Left Patient Position Sitting Flexion Active (degrees) 123 Extension Active (degrees) 0 PT-OP-M Strength Start: 03/31/22 15:42 Freq: Status: Active Protocol: Document 04/12/22 13:45 DCW (Rec: 04/12/22 14:29 DCW [id number]) Knee Strength Knee Manual Muscle Testing Right Flexion (S2) 3+ Fair+ Extension (L3) 3- Fair- PT-OP-Q Treatments Start: 03/31/22 15:42 Freq: Status: Active Protocol: Document 04/28/22 11:15 DCW (Rec: 04/28/22 12:00 DCW [id number]) Cardio Equipment Recumbent Bicycle Duration (Minutes) 6 Seat Position 3 Other no full rotations Gym Equipment Shuttle Recovery Bilateral Squats Details Hold in flexion Resistance 50# Reps/Time Able to get to 97? flexion Therapeutic Exercises Supine Exercises Heel Slides Supine Exercise Name Heel slides Side right Equipment Used slide sheet Standing Exercises Step-up Standing Exercise Name Step-ups Side right Equipment Used 6 step Flexion stretch Standing Exercise Name Step stretch - knee flexion Side right Equipment Used 6 steps Manual Therapy Treatment Joint Mobilizations PF Joint Patella Mobs Direction Inf/Sup Grade III Body Position Supine Knee Joint R Knee Direction P->A Grade III Body Position Hooklying Neuro Re-Education Treatment Balance Activities SLS Details SLS Surface firm, blue foam Tandem stance Details Tandem Stance BOSU lunge Details BOSU Lunge Surface Blue BOSU PT-OP-T Assessment and Plan Start: 03/31/22 15:42 Freq: Status: Active Protocol: Document 04/28/22 11:15 DCW (Rec: 04/28/22 12:00 DCW [id number]) Physical Therapy Assessment Impairments Impairments Activity Tolerance,Balance, Functional Activities, Functional Mobility,Gait, Integument,Pain,ROM,Soft Tissue Mobility,Strength Goals Three Impairment Pt scores as an increased falls risk, per TUG (20.17 /c FWW) Half-Way Goal (LTG) Pt to improve TUG score to <13 seconds without an assistive device to demonstrate reduced falls risk. LTG Duration 06/12/22 Two Impairment Significant limitations in right knee ROM Rigging Slinger Goal (LTG) Pt to improve right knee ROM to 0-120? in order to improve ability to ascend/descend stairs. LTG Duration 06/12/22 One Impairment Pt does not have an appropriate home exercise program Short Term Goal (STG) Pt to be independent and compliant with an appropriate HEP STG Duration 05/12/22 Assessment Summary Assessment Pt continues to require verbal cues for gait, or else she walks without right knee flexion. Improving flexion ROM , measured today at 97? Physical Therapy Plan Frequency and Duration Frequency of Treatment 2x/Week Plan of Care Start Date 04/12/22 Plan of Care End Date 06/12/22 Therapeutic Interventions Therapeutic Interventions Aquatic Therapy,Balance Training,Gait Training,Home Exercise Program,Joint Mobilizations,Manual Therapy, Neuromuscular Re-education, Patient/Caregiver Education, Self-Care/Home Management,Soft Tissue Mobilization, Therapeutic Activities, Therapeutic Exercises Next Visit Focus/Plan Next Note Type Treatment Note Next Visit Plan ROM, strengthening, joint mobilizations
--- NOTE | 2022-05-11 11:59 | PT.OTN ---
Current Diagnoses Unilateral primary osteoarthritis, right knee (05/11/22) Physical Therapy Treatment Note PT-OP-A Visit Information Start: 03/31/22 15:42 Freq: Status: Active Protocol: Document 05/11/22 11:15 DCW (Rec: 05/11/22 11:59 DCW [id number]) Out-Patient Physical Therapy Visit Information Visit Information Visit Type Treatment Note Visit Start Time 11:15 Visit Stop Time 12:00 Total Visit Minutes 45 Visit Number 8 Number of REACH LIFT TRUCK DRIVER Visits 0 Evaluation Information Evaluation Date 03/31/22 PT-OP-B Current Condition Start: 03/31/22 15:42 Freq: Status: Active Protocol: Document 04/12/22 13:45 DCW (Rec: 04/12/22 14:29 DCW [id number]) Current Condition History of Current Condition Onset Date 04/07/22 Current Complaints R TKA History of Current Condition Pt is a 61 year old female who presents to skilled therapy today five days s/p R TKA. Pt has previously undergone a pre -op PT session. Notes surgery went well overall, has been trying to get up and walk around as much as she can. Reports pain has been 8/10 at worst over last two days, had to stop taking her pain pills because they didn't agree with me. PT-OP-C Subjective Start: 03/31/22 15:42 Freq: Status: Active Protocol: Document 05/11/22 11:15 DCW (Rec: 05/11/22 11:59 DCW [id number]) OP-PT Subjective Patient Comments Patient Comments I suppose it is improving. PT-OP-E Functional Tests Start: 03/31/22 15:42 Freq: Status: Active Protocol: Document 04/12/22 13:45 DCW (Rec: 04/12/22 14:29 DCW [id number]) Functional Tests 6 Minute Walk Test Distance 505' Device Used FWW Comments 1.40 ft/sec Timed Up and Go (TUG) Score 20.17 /c FWW Comments 3-trial average (22.01, 19.57, 18.93) PT-OP-F Manual Assessment Start: 03/31/22 15:42 Freq: Status: Active Protocol: Document 04/12/22 13:45 DCW (Rec: 04/12/22 14:29 DCW [id number]) Manual Assessments Soft Tissue Assessment Soft Tissue Mobility Assessment Joint effusion, post-op bruising from ankle to mid- thigh. No redness, no increased warmth PT-OP-J Posture/Palpation/Skin Start: 03/31/22 15:42 Freq: Status: Active Protocol: Document 04/12/22 13:45 DCW (Rec: 04/12/22 14:29 DCW [id number]) Skin Assessment Circumference Measurement 10 cm inferior Location 10 cm inferior to R joint line Measurement (Centimeters) 39 Comments L = 35.3 joint line Location R joint line Measurement (Centimeters) 46.4 Comments L = 41.3 10 cm superior Location 10 cm superior to R joint line Measurement (Centimeters) 50 Comments L = 44.6 PT-OP-K Range of Motion Start: 03/31/22 15:42 Freq: Status: Active Protocol: Document 04/12/22 13:45 DCW (Rec: 04/12/22 14:29 DCW [id number]) Knee Goniometric Range of Motion Knee Right Patient Position Sitting Flexion Active (degrees) 54 Extension Active (degrees) 11 Left Patient Position Sitting Flexion Active (degrees) 123 Extension Active (degrees) 0 PT-OP-M Strength Start: 03/31/22 15:42 Freq: Status: Active Protocol: Document 04/12/22 13:45 DCW (Rec: 04/12/22 14:29 DCW [id number]) Knee Strength Knee Manual Muscle Testing Right Flexion (S2) 3+ Fair+ Extension (L3) 3- Fair- PT-OP-Q Treatments Start: 03/31/22 15:42 Freq: Status: Active Protocol: Document 05/11/22 11:15 DCW (Rec: 05/11/22 11:59 DCW [id number]) Cardio Equipment Recumbent Bicycle Duration (Minutes) 6 Seat Position 3 Other multiple full rotations bkwd/ fwd Gym Equipment Shuttle Recovery Bilateral Squats Details Hold in flexion Resistance 62# Therapeutic Exercises Standing Exercises Hip Extension Standing Exercise Name Hip Extension Side bilateral Resistance Green Flexion stretch Standing Exercise Name Step stretch - knee flexion Side right Equipment Used 6 steps Other Exercises Resisted Ambulation Other Exercise Name Side-stepping Resistance Green Manual Therapy Treatment Joint Mobilizations PF Joint Patella Mobs Direction Inf/Sup Grade III Body Position Supine Knee Joint R Knee Direction P->A Grade III Body Position Hooklying Neuro Re-Education Treatment Balance Activities SLS Details SLS Surface blue foam Tandem stance Details Tandem Stance BOSU lunge Details BOSU Lunge Surface Blue BOSU PT-OP-T Assessment and Plan Start: 03/31/22 15:42 Freq: Status: Active Protocol: Document 05/11/22 11:15 DCW (Rec: 05/11/22 11:59 DCW [id number]) Physical Therapy Assessment Impairments Impairments Activity Tolerance,Balance, Functional Activities, Functional Mobility,Gait, Integument,Pain,ROM,Soft Tissue Mobility,Strength Goals Three Impairment Pt scores as an increased falls risk, per TUG (20.17 /c FWW) Motor And Generator Brush Maker Goal (LTG) Pt to improve TUG score to <13 seconds without an assistive device to demonstrate reduced falls risk. LTG Duration 06/12/22 Two Impairment Significant limitations in right knee ROM Motor And Generator Brush Maker Goal (LTG) Pt to improve right knee ROM to 0-120? in order to improve ability to ascend/descend stairs. LTG Duration 06/12/22 One Impairment Pt does not have an appropriate home exercise program Short Term Goal (STG) Pt to be independent and compliant with an appropriate HEP STG Duration 05/12/22 Assessment Summary Assessment Pt making great strides in recovery, doing well today, able to get full rotation on stationary bike for the first time today, able to tolerate increased resistance with most activities. Physical Therapy Plan Frequency and Duration Frequency of Treatment 2x/Week Plan of Care Start Date 04/12/22 Plan of Care End Date 06/12/22 Therapeutic Interventions Therapeutic Interventions Aquatic Therapy,Balance Training,Gait Training,Home Exercise Program,Joint Mobilizations,Manual Therapy, Neuromuscular Re-education, Patient/Caregiver Education, Self-Care/Home Management,Soft Tissue Mobilization, Therapeutic Activities, Therapeutic Exercises Next Visit Focus/Plan Next Note Type Treatment Note Next Visit Plan ROM, strengthening, joint mobilizations
--- NOTE | 2022-05-13 11:59 | PT.OTN ---
Current Diagnoses Unilateral primary osteoarthritis, right knee (05/13/22) Physical Therapy Treatment Note PT-OP-A Visit Information Start: 03/31/22 15:42 Freq: Status: Active Protocol: Document 05/13/22 11:15 DCW (Rec: 05/13/22 11:57 DCW [id number]) Out-Patient Physical Therapy Visit Information Visit Information Visit Type Treatment Note Visit Start Time 11:15 Visit Stop Time 12:00 Total Visit Minutes 45 Visit Number 9 Number of STONE PROCESSING MACHINE OPERATOR Visits 0 Evaluation Information Evaluation Date 03/31/22 PT-OP-B Current Condition Start: 03/31/22 15:42 Freq: Status: Active Protocol: Document 04/12/22 13:45 DCW (Rec: 04/12/22 14:29 DCW [id number]) Current Condition History of Current Condition Onset Date 04/07/22 Current Complaints R TKA History of Current Condition Pt is a 61 year old female who presents to skilled therapy today five days s/p R TKA. Pt has previously undergone a pre -op PT session. Notes surgery went well overall, has been trying to get up and walk around as much as she can. Reports pain has been 8/10 at worst over last two days, had to stop taking her pain pills because they didn't agree with me. PT-OP-C Subjective Start: 03/31/22 15:42 Freq: Status: Active Protocol: Document 05/13/22 11:15 DCW (Rec: 05/13/22 11:58 DCW [id number]) OP-PT Subjective Patient Comments Patient Comments Pt reports she has a follow-up with her surgeon later today. PT-OP-E Functional Tests Start: 03/31/22 15:42 Freq: Status: Active Protocol: Document 04/12/22 13:45 DCW (Rec: 04/12/22 14:29 DCW [id number]) Functional Tests 6 Minute Walk Test Distance 505' Device Used FWW Comments 1.40 ft/sec Timed Up and Go (TUG) Score 20.17 /c FWW Comments 3-trial average (22.01, 19.57, 18.93) PT-OP-F Manual Assessment Start: 03/31/22 15:42 Freq: Status: Active Protocol: Document 04/12/22 13:45 DCW (Rec: 04/12/22 14:29 DCW [id number]) Manual Assessments Soft Tissue Assessment Soft Tissue Mobility Assessment Joint effusion, post-op bruising from ankle to mid- thigh. No redness, no increased warmth PT-OP-J Posture/Palpation/Skin Start: 03/31/22 15:42 Freq: Status: Active Protocol: Document 04/12/22 13:45 DCW (Rec: 04/12/22 14:29 DCW [id number]) Skin Assessment Circumference Measurement 10 cm inferior Location 10 cm inferior to R joint line Measurement (Centimeters) 39 Comments L = 35.3 joint line Location R joint line Measurement (Centimeters) 46.4 Comments L = 41.3 10 cm superior Location 10 cm superior to R joint line Measurement (Centimeters) 50 Comments L = 44.6 PT-OP-K Range of Motion Start: 03/31/22 15:42 Freq: Status: Active Protocol: Document 04/12/22 13:45 DCW (Rec: 04/12/22 14:29 DCW [id number]) Knee Goniometric Range of Motion Knee Right Patient Position Sitting Flexion Active (degrees) 54 Extension Active (degrees) 11 Left Patient Position Sitting Flexion Active (degrees) 123 Extension Active (degrees) 0 PT-OP-M Strength Start: 03/31/22 15:42 Freq: Status: Active Protocol: Document 04/12/22 13:45 DCW (Rec: 04/12/22 14:29 DCW [id number]) Knee Strength Knee Manual Muscle Testing Right Flexion (S2) 3+ Fair+ Extension (L3) 3- Fair- PT-OP-Q Treatments Start: 03/31/22 15:42 Freq: Status: Active Protocol: Document 05/13/22 11:15 DCW (Rec: 05/13/22 11:57 DCW [id number]) Cardio Equipment Recumbent Bicycle Duration (Minutes) 6 Seat Position 3->4 Other multiple full rotations bkwd/ fwd Gym Equipment Shuttle Recovery Bilateral Squats Details Hold in flexion Resistance 62# Reps/Time Able to get to 107? flexion Therapeutic Exercises Standing Exercises Hip Extension Standing Exercise Name Hip Extension Side bilateral Resistance Blue Flexion stretch Standing Exercise Name Step stretch - knee flexion Side right Equipment Used 6 steps Other Exercises Resisted Ambulation Other Exercise Name Side-stepping Resistance Blue Manual Therapy Treatment Joint Mobilizations PF Joint Patella Mobs Direction Inf/Sup Grade III Body Position Supine Knee Joint R Knee Direction P->A Grade III Body Position Hooklying Neuro Re-Education Treatment Balance Activities SLS Details SLS Surface blue foam BOSU lunge Details BOSU Lunge Surface Blue BOSU PT-OP-T Assessment and Plan Start: 03/31/22 15:42 Freq: Status: Active Protocol: Document 05/13/22 11:15 DCW (Rec: 05/13/22 11:57 DCW [id number]) Physical Therapy Assessment Impairments Impairments Activity Tolerance,Balance, Functional Activities, Functional Mobility,Gait, Integument,Pain,ROM,Soft Tissue Mobility,Strength Goals Three Impairment Pt scores as an increased falls risk, per TUG (20.17 /c FWW) Snf Goal (LTG) Pt to improve TUG score to <13 seconds without an assistive device to demonstrate reduced falls risk. LTG Duration 06/12/22 Two Impairment Significant limitations in right knee ROM Snf Goal (LTG) Pt to improve right knee ROM to 0-120? in order to improve ability to ascend/descend stairs. LTG Duration 06/12/22 One Impairment Pt does not have an appropriate home exercise program Short Term Goal (STG) Pt to be independent and compliant with an appropriate HEP STG Duration 05/12/22 Assessment Summary Assessment Pt continues to make good ROM progress, increased flexion to 107? today. Ambulating more without a FWW, showing minimal antalgia. Physical Therapy Plan Frequency and Duration Frequency of Treatment 2x/Week Plan of Care Start Date 04/12/22 Plan of Care End Date 06/12/22 Therapeutic Interventions Therapeutic Interventions Aquatic Therapy,Balance Training,Gait Training,Home Exercise Program,Joint Mobilizations,Manual Therapy, Neuromuscular Re-education, Patient/Caregiver Education, Self-Care/Home Management,Soft Tissue Mobilization, Therapeutic Activities, Therapeutic Exercises Next Visit Focus/Plan Next Note Type Treatment Note Next Visit Plan ROM, strengthening, joint mobilizations
--- NOTE | 2022-05-18 11:56 | PT.OTN ---
Current Diagnoses Unilateral primary osteoarthritis, right knee (05/18/22) Physical Therapy Treatment Note PT-OP-A Visit Information Start: 03/31/22 15:42 Freq: Status: Active Protocol: Document 05/18/22 11:15 DCW (Rec: 05/18/22 11:55 DCW [id number]) Out-Patient Physical Therapy Visit Information Visit Information Visit Type Treatment Note Visit Start Time 11:15 Visit Stop Time 12:00 Total Visit Minutes 45 Visit Number 10 Number of TARE WORKER Visits 0 Evaluation Information Evaluation Date 03/31/22 PT-OP-B Current Condition Start: 03/31/22 15:42 Freq: Status: Active Protocol: Document 04/12/22 13:45 DCW (Rec: 04/12/22 14:29 DCW [id number]) Current Condition History of Current Condition Onset Date 04/07/22 Current Complaints R TKA History of Current Condition Pt is a 61 year old female who presents to skilled therapy today five days s/p R TKA. Pt has previously undergone a pre -op PT session. Notes surgery went well overall, has been trying to get up and walk around as much as she can. Reports pain has been 8/10 at worst over last two days, had to stop taking her pain pills because they didn't agree with me. PT-OP-C Subjective Start: 03/31/22 15:42 Freq: Status: Active Protocol: Document 05/18/22 11:15 DCW (Rec: 05/18/22 11:55 DCW [id number]) OP-PT Subjective Patient Comments Patient Comments Pt comes in today without her FWW, reports she received permission to drive from her post-surgical follow-up. PT-OP-E Functional Tests Start: 03/31/22 15:42 Freq: Status: Active Protocol: Document 04/12/22 13:45 DCW (Rec: 04/12/22 14:29 DCW [id number]) Functional Tests 6 Minute Walk Test Distance 505' Device Used FWW Comments 1.40 ft/sec Timed Up and Go (TUG) Score 20.17 /c FWW Comments 3-trial average (22.01, 19.57, 18.93) PT-OP-F Manual Assessment Start: 03/31/22 15:42 Freq: Status: Active Protocol: Document 04/12/22 13:45 DCW (Rec: 04/12/22 14:29 DCW [id number]) Manual Assessments Soft Tissue Assessment Soft Tissue Mobility Assessment Joint effusion, post-op bruising from ankle to mid- thigh. No redness, no increased warmth PT-OP-J Posture/Palpation/Skin Start: 03/31/22 15:42 Freq: Status: Active Protocol: Document 04/12/22 13:45 DCW (Rec: 04/12/22 14:29 DCW [id number]) Skin Assessment Circumference Measurement 10 cm inferior Location 10 cm inferior to R joint line Measurement (Centimeters) 39 Comments L = 35.3 joint line Location R joint line Measurement (Centimeters) 46.4 Comments L = 41.3 10 cm superior Location 10 cm superior to R joint line Measurement (Centimeters) 50 Comments L = 44.6 PT-OP-K Range of Motion Start: 03/31/22 15:42 Freq: Status: Active Protocol: Document 04/12/22 13:45 DCW (Rec: 04/12/22 14:29 DCW [id number]) Knee Goniometric Range of Motion Knee Right Patient Position Sitting Flexion Active (degrees) 54 Extension Active (degrees) 11 Left Patient Position Sitting Flexion Active (degrees) 123 Extension Active (degrees) 0 PT-OP-M Strength Start: 03/31/22 15:42 Freq: Status: Active Protocol: Document 04/12/22 13:45 DCW (Rec: 04/12/22 14:29 DCW [id number]) Knee Strength Knee Manual Muscle Testing Right Flexion (S2) 3+ Fair+ Extension (L3) 3- Fair- PT-OP-Q Treatments Start: 03/31/22 15:42 Freq: Status: Active Protocol: Document 05/18/22 11:15 DCW (Rec: 05/18/22 11:55 DCW [id number]) Cardio Equipment Recumbent Bicycle Duration (Minutes) 6 Resistance 4 Seat Position 4 Gym Equipment Shuttle Recovery Bilateral Squats Details Hold in flexion Resistance 75# Reps/Time Able to get to 117? flexion Therapeutic Exercises Standing Exercises Step-up Standing Exercise Name Step-ups Side right Equipment Used 8 step Flexion stretch Standing Exercise Name Step stretch - knee flexion Side right Equipment Used 2 8 steps Manual Therapy Treatment Joint Mobilizations PF Joint Patella Mobs Direction Inf/Sup Grade III Body Position Supine Knee Joint R Knee Direction P->A Grade III Body Position Hooklying PT-OP-T Assessment and Plan Start: 03/31/22 15:42 Freq: Status: Active Protocol: Document 05/18/22 11:15 DCW (Rec: 05/18/22 11:55 DCW [id number]) Physical Therapy Assessment Impairments Impairments Activity Tolerance,Balance, Functional Activities, Functional Mobility,Gait, Integument,Pain,ROM,Soft Tissue Mobility,Strength Goals Three Impairment Pt scores as an increased falls risk, per TUG (20.17 /c FWW) Hose Finisher Goal (LTG) Pt to improve TUG score to <13 seconds without an assistive device to demonstrate reduced falls risk. LTG Duration 06/12/22 Two Impairment Significant limitations in right knee ROM Hose Finisher Goal (LTG) Pt to improve right knee ROM to 0-120? in order to improve ability to ascend/descend stairs. LTG Duration 06/12/22 One Impairment Pt does not have an appropriate home exercise program Short Term Goal (STG) Pt to be independent and compliant with an appropriate HEP STG Duration 05/12/22 Assessment Summary Assessment Flexion up to 117? today, approaching completion of all goals. Pt continues to progress with each visit, doing very well overall post- surgical intervention. Physical Therapy Plan Frequency and Duration Frequency of Treatment 2x/Week Plan of Care Start Date 04/12/22 Plan of Care End Date 06/12/22 Therapeutic Interventions Therapeutic Interventions Aquatic Therapy,Balance Training,Gait Training,Home Exercise Program,Joint Mobilizations,Manual Therapy, Neuromuscular Re-education, Patient/Caregiver Education, Self-Care/Home Management,Soft Tissue Mobilization, Therapeutic Activities, Therapeutic Exercises Next Visit Focus/Plan Next Note Type Treatment Note Next Visit Plan ROM, strengthening, joint mobilizations
--- NOTE | 2022-05-20 12:00 | PT.OTN ---
Current Diagnoses Unilateral primary osteoarthritis, right knee (05/20/22) Physical Therapy Treatment Note PT-OP-A Visit Information Start: 03/31/22 15:42 Freq: Status: Active Protocol: Document 05/20/22 11:15 DCW (Rec: 05/20/22 12:00 DCW [id number]) Out-Patient Physical Therapy Visit Information Visit Information Visit Type Treatment Note Visit Start Time 11:15 Visit Stop Time 12:00 Total Visit Minutes 45 Visit Number 11 Number of DAM TENDER Visits 0 Evaluation Information Evaluation Date 03/31/22 PT-OP-B Current Condition Start: 03/31/22 15:42 Freq: Status: Active Protocol: Document 04/12/22 13:45 DCW (Rec: 04/12/22 14:29 DCW [id number]) Current Condition History of Current Condition Onset Date 04/07/22 Current Complaints R TKA History of Current Condition Pt is a 61 year old female who presents to skilled therapy today five days s/p R TKA. Pt has previously undergone a pre -op PT session. Notes surgery went well overall, has been trying to get up and walk around as much as she can. Reports pain has been 8/10 at worst over last two days, had to stop taking her pain pills because they didn't agree with me. PT-OP-C Subjective Start: 03/31/22 15:42 Freq: Status: Active Protocol: Document 05/20/22 11:15 DCW (Rec: 05/20/22 12:00 DCW [id number]) OP-PT Subjective Patient Comments Patient Comments I had a hard time sleeping last night, it just ached and ached and ached. PT-OP-E Functional Tests Start: 03/31/22 15:42 Freq: Status: Active Protocol: Document 04/12/22 13:45 DCW (Rec: 04/12/22 14:29 DCW [id number]) Functional Tests 6 Minute Walk Test Distance 505' Device Used FWW Comments 1.40 ft/sec Timed Up and Go (TUG) Score 20.17 /c FWW Comments 3-trial average (22.01, 19.57, 18.93) PT-OP-F Manual Assessment Start: 03/31/22 15:42 Freq: Status: Active Protocol: Document 04/12/22 13:45 DCW (Rec: 04/12/22 14:29 DCW [id number]) Manual Assessments Soft Tissue Assessment Soft Tissue Mobility Assessment Joint effusion, post-op bruising from ankle to mid- thigh. No redness, no increased warmth PT-OP-J Posture/Palpation/Skin Start: 03/31/22 15:42 Freq: Status: Active Protocol: Document 04/12/22 13:45 DCW (Rec: 04/12/22 14:29 DCW [id number]) Skin Assessment Circumference Measurement 10 cm inferior Location 10 cm inferior to R joint line Measurement (Centimeters) 39 Comments L = 35.3 joint line Location R joint line Measurement (Centimeters) 46.4 Comments L = 41.3 10 cm superior Location 10 cm superior to R joint line Measurement (Centimeters) 50 Comments L = 44.6 PT-OP-K Range of Motion Start: 03/31/22 15:42 Freq: Status: Active Protocol: Document 04/12/22 13:45 DCW (Rec: 04/12/22 14:29 DCW [id number]) Knee Goniometric Range of Motion Knee Right Patient Position Sitting Flexion Active (degrees) 54 Extension Active (degrees) 11 Left Patient Position Sitting Flexion Active (degrees) 123 Extension Active (degrees) 0 PT-OP-M Strength Start: 03/31/22 15:42 Freq: Status: Active Protocol: Document 04/12/22 13:45 DCW (Rec: 04/12/22 14:29 DCW [id number]) Knee Strength Knee Manual Muscle Testing Right Flexion (S2) 3+ Fair+ Extension (L3) 3- Fair- PT-OP-Q Treatments Start: 03/31/22 15:42 Freq: Status: Active Protocol: Document 05/20/22 11:15 DCW (Rec: 05/20/22 12:00 DCW [id number]) Cardio Equipment Recumbent Bicycle Duration (Minutes) 6 Resistance 4 Seat Position 3 Gym Equipment Shuttle Recovery Bilateral Squats Details Hold in flexion Resistance 75# Reps/Time Able to get to 117? flexion Therapeutic Exercises Standing Exercises Toe taps Standing Exercise Name Toe-taps Side bilateral Resistance 5# Equipment Used 8 step Hamstring curl Standing Exercise Name HS curl Side bilateral Resistance 5# Neuro Re-Education Treatment Balance Activities Tandem Ambulation Details Tandem Ambulation SLS Details SLS Surface blue foam Equipment // bars Tandem stance Details Tandem Stance Equipment // bars PT-OP-T Assessment and Plan Start: 03/31/22 15:42 Freq: Status: Active Protocol: Document 05/20/22 11:15 DCW (Rec: 05/20/22 12:00 DCW [id number]) Physical Therapy Assessment Impairments Impairments Activity Tolerance,Balance, Functional Activities, Functional Mobility,Gait, Integument,Pain,ROM,Soft Tissue Mobility,Strength Goals Three Impairment Pt scores as an increased falls risk, per TUG (20.17 /c FWW) Mh Teacher Goal (LTG) Pt to improve TUG score to <13 seconds without an assistive device to demonstrate reduced falls risk. LTG Duration 06/12/22 Two Impairment Significant limitations in right knee ROM Alf Goal (LTG) Pt to improve right knee ROM to 0-120? in order to improve ability to ascend/descend stairs. LTG Duration 06/12/22 One Impairment Pt does not have an appropriate home exercise program Short Term Goal (STG) Pt to be independent and compliant with an appropriate HEP STG Duration 05/12/22 Assessment Summary Assessment Doing very well, passive flexion reached 120? tpday, should continue to focus now on strengthening and active ROM. Physical Therapy Plan Frequency and Duration Frequency of Treatment 2x/Week Plan of Care Start Date 04/12/22 Plan of Care End Date 06/12/22 Therapeutic Interventions Therapeutic Interventions Aquatic Therapy,Balance Training,Gait Training,Home Exercise Program,Joint Mobilizations,Manual Therapy, Neuromuscular Re-education, Patient/Caregiver Education, Self-Care/Home Management,Soft Tissue Mobilization, Therapeutic Activities, Therapeutic Exercises Next Visit Focus/Plan Next Note Type Treatment Note Next Visit Plan ROM, strengthening, joint mobilizations
--- NOTE | 2022-05-24 10:30 | PT.OTN ---
Current Diagnoses Unilateral primary osteoarthritis, right knee (05/24/22) Physical Therapy Treatment Note PT-OP-A Visit Information Start: 03/31/22 15:42 Freq: Status: Active Protocol: Document 05/24/22 09:46 DCW (Rec: 05/24/22 10:30 DCW [id number]) Out-Patient Physical Therapy Visit Information Visit Information Visit Type Treatment Note Visit Start Time 09:46 Visit Stop Time 10:30 Total Visit Minutes 44 Visit Number 12 Number of MECHATRONICS ENGINEER Visits 0 Evaluation Information Evaluation Date 03/31/22 PT-OP-B Current Condition Start: 03/31/22 15:42 Freq: Status: Active Protocol: Document 04/12/22 13:45 DCW (Rec: 04/12/22 14:29 DCW [id number]) Current Condition History of Current Condition Onset Date 04/07/22 Current Complaints R TKA History of Current Condition Pt is a 61 year old female who presents to skilled therapy today five days s/p R TKA. Pt has previously undergone a pre -op PT session. Notes surgery went well overall, has been trying to get up and walk around as much as she can. Reports pain has been 8/10 at worst over last two days, had to stop taking her pain pills because they didn't agree with me. PT-OP-C Subjective Start: 03/31/22 15:42 Freq: Status: Active Protocol: Document 05/24/22 09:46 DCW (Rec: 05/24/22 10:30 DCW [id number]) OP-PT Subjective Patient Comments Patient Comments I went for a walk on Tuesday, and I did a full mile, but I think I paid for it the next day. PT-OP-E Functional Tests Start: 03/31/22 15:42 Freq: Status: Active Protocol: Document 04/12/22 13:45 DCW (Rec: 04/12/22 14:29 DCW [id number]) Functional Tests 6 Minute Walk Test Distance 505' Device Used FWW Comments 1.40 ft/sec Timed Up and Go (TUG) Score 20.17 /c FWW Comments 3-trial average (22.01, 19.57, 18.93) PT-OP-F Manual Assessment Start: 03/31/22 15:42 Freq: Status: Active Protocol: Document 04/12/22 13:45 DCW (Rec: 04/12/22 14:29 DCW [id number]) Manual Assessments Soft Tissue Assessment Soft Tissue Mobility Assessment Joint effusion, post-op bruising from ankle to mid- thigh. No redness, no increased warmth PT-OP-J Posture/Palpation/Skin Start: 03/31/22 15:42 Freq: Status: Active Protocol: Document 04/12/22 13:45 DCW (Rec: 04/12/22 14:29 DCW [id number]) Skin Assessment Circumference Measurement 10 cm inferior Location 10 cm inferior to R joint line Measurement (Centimeters) 39 Comments L = 35.3 joint line Location R joint line Measurement (Centimeters) 46.4 Comments L = 41.3 10 cm superior Location 10 cm superior to R joint line Measurement (Centimeters) 50 Comments L = 44.6 PT-OP-K Range of Motion Start: 03/31/22 15:42 Freq: Status: Active Protocol: Document 04/12/22 13:45 DCW (Rec: 04/12/22 14:29 DCW [id number]) Knee Goniometric Range of Motion Knee Right Patient Position Sitting Flexion Active (degrees) 54 Extension Active (degrees) 11 Left Patient Position Sitting Flexion Active (degrees) 123 Extension Active (degrees) 0 PT-OP-M Strength Start: 03/31/22 15:42 Freq: Status: Active Protocol: Document 04/12/22 13:45 DCW (Rec: 04/12/22 14:29 DCW [id number]) Knee Strength Knee Manual Muscle Testing Right Flexion (S2) 3+ Fair+ Extension (L3) 3- Fair- PT-OP-Q Treatments Start: 03/31/22 15:42 Freq: Status: Active Protocol: Document 05/24/22 09:46 DCW (Rec: 05/24/22 10:30 DCW [id number]) Cardio Equipment Recumbent Bicycle Duration (Minutes) 6 Resistance 4 Seat Position 3 Gym Equipment Shuttle Recovery Bilateral Squats Details Hold in flexion Resistance 75# Reps/Time Able to get to 121? flexion Therapeutic Exercises Supine Exercises Heel Slides Supine Exercise Name Heel slides Side right Comments AROM 117? Standing Exercises Toe taps Standing Exercise Name Toe-taps Side bilateral Resistance 5# Equipment Used 8 step Hamstring curl Standing Exercise Name HS curl Side bilateral Resistance 5# Hip Extension Standing Exercise Name Hip Extension Side bilateral Resistance Blue Other Exercises Resisted Ambulation Other Exercise Name Side-stepping Resistance Blue Manual Therapy Treatment Joint Mobilizations PF Joint Patella Mobs Direction Inf/Sup Grade III Body Position Supine Knee Joint R Knee Direction P->A Grade III Body Position Hooklying Neuro Re-Education Treatment Balance Activities Tandem stance Details Tandem Stance Equipment // bars BOSU lunge Details BOSU Lunge Surface Blue BOSU PT-OP-T Assessment and Plan Start: 03/31/22 15:42 Freq: Status: Active Protocol: Document 05/24/22 09:46 DCW (Rec: 05/24/22 10:30 DCW [id number]) Physical Therapy Assessment Impairments Impairments Activity Tolerance,Balance, Functional Activities, Functional Mobility,Gait, Integument,Pain,ROM,Soft Tissue Mobility,Strength Goals Three Impairment Pt scores as an increased falls risk, per TUG (20.17 /c FWW) Cook Ship Goal (LTG) Pt to improve TUG score to <13 seconds without an assistive device to demonstrate reduced falls risk. LTG Duration 06/12/22 Two Impairment Significant limitations in right knee ROM Cook Ship Goal (LTG) Pt to improve right knee ROM to 0-120? in order to improve ability to ascend/descend stairs. LTG Duration 06/12/22 One Impairment Pt does not have an appropriate home exercise program Short Term Goal (STG) Pt to be independent and compliant with an appropriate HEP STG Duration 05/12/22 Assessment Summary Assessment AROM approaching expected post -op levels, pt has returned back to work as of today. Overall, pt progressing very well overall, although she does still have some worries/ concerns regarding occasional soreness and tightness in her knee. Physical Therapy Plan Frequency and Duration Frequency of Treatment 2x/Week Plan of Care Start Date 04/12/22 Plan of Care End Date 06/12/22 Therapeutic Interventions Therapeutic Interventions Aquatic Therapy,Balance Training,Gait Training,Home Exercise Program,Joint Mobilizations,Manual Therapy, Neuromuscular Re-education, Patient/Caregiver Education, Self-Care/Home Management,Soft Tissue Mobilization, Therapeutic Activities, Therapeutic Exercises Next Visit Focus/Plan Next Note Type Treatment Note Next Visit Plan ROM, strengthening, joint mobilizations
--- NOTE | 2022-05-26 12:03 | PT.OTN ---
Current Diagnoses Unilateral primary osteoarthritis, right knee (05/26/22) Physical Therapy Treatment Note PT-OP-A Visit Information Start: 03/31/22 15:42 Freq: Status: Active Protocol: Document 05/26/22 09:44 AW (Rec: 05/26/22 12:03 AW [id number]) Out-Patient Physical Therapy Visit Information Visit Information Visit Type Treatment Note Visit Start Time 11:15 Visit Stop Time 12:00 Total Visit Minutes 45 Visit Number 13 Number of MANAGEMENT ADVISOR Visits 0 Evaluation Information Evaluation Date 03/31/22 PT-OP-B Current Condition Start: 03/31/22 15:42 Freq: Status: Active Protocol: Document 04/12/22 13:45 DCW (Rec: 04/12/22 14:29 DCW [id number]) Current Condition History of Current Condition Onset Date 04/07/22 Current Complaints R TKA History of Current Condition Pt is a 61 year old female who presents to skilled therapy today five days s/p R TKA. Pt has previously undergone a pre -op PT session. Notes surgery went well overall, has been trying to get up and walk around as much as she can. Reports pain has been 8/10 at worst over last two days, had to stop taking her pain pills because they didn't agree with me. PT-OP-C Subjective Start: 03/31/22 15:42 Freq: Status: Active Protocol: Document 05/26/22 09:44 AW (Rec: 05/26/22 12:03 AW [id number]) OP-PT Subjective Patient Comments Patient Comments Ting is back to work (two days per week). Walking about 1/2 mile daily. Happy to report she slept five consecutive hours last night. PT-OP-E Functional Tests Start: 03/31/22 15:42 Freq: Status: Active Protocol: Document 04/12/22 13:45 DCW (Rec: 04/12/22 14:29 DCW [id number]) Functional Tests 6 Minute Walk Test Distance 505' Device Used FWW Comments 1.40 ft/sec Timed Up and Go (TUG) Score 20.17 /c FWW Comments 3-trial average (22.01, 19.57, 18.93) PT-OP-F Manual Assessment Start: 03/31/22 15:42 Freq: Status: Active Protocol: Document 04/12/22 13:45 DCW (Rec: 04/12/22 14:29 DCW [id number]) Manual Assessments Soft Tissue Assessment Soft Tissue Mobility Assessment Joint effusion, post-op bruising from ankle to mid- thigh. No redness, no increased warmth PT-OP-J Posture/Palpation/Skin Start: 03/31/22 15:42 Freq: Status: Active Protocol: Document 04/12/22 13:45 DCW (Rec: 04/12/22 14:29 DCW [id number]) Skin Assessment Circumference Measurement 10 cm inferior Location 10 cm inferior to R joint line Measurement (Centimeters) 39 Comments L = 35.3 joint line Location R joint line Measurement (Centimeters) 46.4 Comments L = 41.3 10 cm superior Location 10 cm superior to R joint line Measurement (Centimeters) 50 Comments L = 44.6 PT-OP-K Range of Motion Start: 03/31/22 15:42 Freq: Status: Active Protocol: Document 04/12/22 13:45 DCW (Rec: 04/12/22 14:29 DCW [id number]) Knee Goniometric Range of Motion Knee Right Patient Position Sitting Flexion Active (degrees) 54 Extension Active (degrees) 11 Left Patient Position Sitting Flexion Active (degrees) 123 Extension Active (degrees) 0 PT-OP-M Strength Start: 03/31/22 15:42 Freq: Status: Active Protocol: Document 04/12/22 13:45 DCW (Rec: 04/12/22 14:29 DCW [id number]) Knee Strength Knee Manual Muscle Testing Right Flexion (S2) 3+ Fair+ Extension (L3) 3- Fair- PT-OP-Q Treatments Start: 03/31/22 15:42 Freq: Status: Active Protocol: Document 05/26/22 09:44 AW (Rec: 05/26/22 12:03 AW [id number]) Cardio Equipment Recumbent Bicycle Duration (Minutes) 6 Resistance 4 Seat Position 3 Gym Equipment Shuttle Recovery Bilateral Squats Details Hold in flexion Resistance 75# Reps/Time Able to get to 121? flexion Therapeutic Exercises Standing Exercises Toe taps Standing Exercise Name Toe-taps Side bilateral Resistance 5# Equipment Used 8 step Hamstring curl Standing Exercise Name HS curl Side bilateral Resistance 5# Other Exercises Resisted Ambulation Other Exercise Name Side-stepping Resistance Blue Manual Therapy Treatment Joint Mobilizations PF Joint Patella Mobs Direction Inf/Sup Grade III Body Position Supine Knee Joint R Knee Direction P->A Grade III Body Position Hooklying Neuro Re-Education Treatment Balance Activities Tandem Ambulation Details Tandem Ambulation SLS Details SLS Surface blue foam Equipment // bars Tandem stance Details Tandem Stance Equipment // bars PT-OP-T Assessment and Plan Start: 03/31/22 15:42 Freq: Status: Active Protocol: Document 05/26/22 09:44 AW (Rec: 05/26/22 12:03 AW [id number]) Physical Therapy Assessment Impairments Impairments Activity Tolerance,Balance, Functional Activities, Functional Mobility,Gait, Integument,Pain,ROM,Soft Tissue Mobility,Strength Goals Three Impairment Pt scores as an increased falls risk, per TUG (20.17 /c FWW) Care Home Goal (LTG) Pt to improve TUG score to <13 seconds without an assistive device to demonstrate reduced falls risk. LTG Duration 06/12/22 Two Impairment Significant limitations in right knee ROM Patient Intake Representative Goal (LTG) Pt to improve right knee ROM to 0-120? in order to improve ability to ascend/descend stairs. LTG Duration 06/12/22 One Impairment Pt does not have an appropriate home exercise program Short Term Goal (STG) Pt to be independent and compliant with an appropriate HEP STG Duration 05/12/22 Assessment Summary Assessment Pt has expected right single leg stance deficit compared with left but does well with weighted toe taps. She reports her soreness is worst after long periods of inactivity. Encouraged pt to do simple ROM exercises before getting up in the morning. Physical Therapy Plan Frequency and Duration Frequency of Treatment 2x/Week Plan of Care Start Date 04/12/22 Plan of Care End Date 06/12/22 Therapeutic Interventions Therapeutic Interventions Aquatic Therapy,Balance Training,Gait Training,Home Exercise Program,Joint Mobilizations,Manual Therapy, Neuromuscular Re-education, Patient/Caregiver Education, Self-Care/Home Management,Soft Tissue Mobilization, Therapeutic Activities, Therapeutic Exercises Next Visit Focus/Plan Next Note Type Treatment Note Next Visit Plan ROM, strengthening, joint mobilizations
--- NOTE | 2022-05-31 10:31 | PT.OTN ---
Current Diagnoses Unilateral primary osteoarthritis, right knee (05/31/22) Physical Therapy Treatment Note PT-OP-A Visit Information Start: 03/31/22 15:42 Freq: Status: Active Protocol: Document 05/31/22 09:45 DCW (Rec: 05/31/22 10:31 DCW [id number]) Out-Patient Physical Therapy Visit Information Visit Information Visit Type Treatment Note Visit Start Time 09:45 Visit Stop Time 10:30 Total Visit Minutes 45 Visit Number 14 Number of SENIOR HUMAN RESOURCES REPRESENTATIVE Visits 0 Evaluation Information Evaluation Date 03/31/22 PT-OP-B Current Condition Start: 03/31/22 15:42 Freq: Status: Active Protocol: Document 04/12/22 13:45 DCW (Rec: 04/12/22 14:29 DCW [id number]) Current Condition History of Current Condition Onset Date 04/07/22 Current Complaints R TKA History of Current Condition Pt is a 61 year old female who presents to skilled therapy today five days s/p R TKA. Pt has previously undergone a pre -op PT session. Notes surgery went well overall, has been trying to get up and walk around as much as she can. Reports pain has been 8/10 at worst over last two days, had to stop taking her pain pills because they didn't agree with me. PT-OP-C Subjective Start: 03/31/22 15:42 Freq: Status: Active Protocol: Document 05/31/22 09:45 DCW (Rec: 05/31/22 10:31 DCW [id number]) OP-PT Subjective Patient Comments Patient Comments Pt overall doing well, biggest complaint continues to be pain during the night. PT-OP-E Functional Tests Start: 03/31/22 15:42 Freq: Status: Active Protocol: Document 04/12/22 13:45 DCW (Rec: 04/12/22 14:29 DCW [id number]) Functional Tests 6 Minute Walk Test Distance 505' Device Used FWW Comments 1.40 ft/sec Timed Up and Go (TUG) Score 20.17 /c FWW Comments 3-trial average (22.01, 19.57, 18.93) PT-OP-F Manual Assessment Start: 03/31/22 15:42 Freq: Status: Active Protocol: Document 04/12/22 13:45 DCW (Rec: 04/12/22 14:29 DCW [id number]) Manual Assessments Soft Tissue Assessment Soft Tissue Mobility Assessment Joint effusion, post-op bruising from ankle to mid- thigh. No redness, no increased warmth PT-OP-J Posture/Palpation/Skin Start: 03/31/22 15:42 Freq: Status: Active Protocol: Document 04/12/22 13:45 DCW (Rec: 04/12/22 14:29 DCW [id number]) Skin Assessment Circumference Measurement 10 cm inferior Location 10 cm inferior to R joint line Measurement (Centimeters) 39 Comments L = 35.3 joint line Location R joint line Measurement (Centimeters) 46.4 Comments L = 41.3 10 cm superior Location 10 cm superior to R joint line Measurement (Centimeters) 50 Comments L = 44.6 PT-OP-K Range of Motion Start: 03/31/22 15:42 Freq: Status: Active Protocol: Document 04/12/22 13:45 DCW (Rec: 04/12/22 14:29 DCW [id number]) Knee Goniometric Range of Motion Knee Right Patient Position Sitting Flexion Active (degrees) 54 Extension Active (degrees) 11 Left Patient Position Sitting Flexion Active (degrees) 123 Extension Active (degrees) 0 PT-OP-M Strength Start: 03/31/22 15:42 Freq: Status: Active Protocol: Document 04/12/22 13:45 DCW (Rec: 04/12/22 14:29 DCW [id number]) Knee Strength Knee Manual Muscle Testing Right Flexion (S2) 3+ Fair+ Extension (L3) 3- Fair- PT-OP-Q Treatments Start: 03/31/22 15:42 Freq: Status: Active Protocol: Document 05/31/22 09:45 DCW (Rec: 05/31/22 10:31 DCW [id number]) Cardio Equipment Recumbent Bicycle Duration (Minutes) 6 Resistance 5 Seat Position 3 Gym Equipment Shuttle Recovery Bilateral Squats Details Hold in flexion Resistance 87# Therapeutic Exercises Sitting Exercises LAQ Sitting Exercise Name LAQ Side bilateral Resistance 10# Standing Exercises Hamstring curl Standing Exercise Name HS curl Side bilateral Resistance 10# Hip Extension Standing Exercise Name Hip Extension Side bilateral Resistance Blue Other Exercises Resisted Ambulation Other Exercise Name Side-stepping Resistance Blue Manual Therapy Treatment Joint Mobilizations PF Joint Patella Mobs Direction Inf/Sup Grade III Body Position Supine Knee Joint R Knee Direction P->A Grade III Body Position Hooklying Neuro Re-Education Treatment Balance Activities SLS Details SLS Surface blue foam Equipment // bars BOSU lunge Details BOSU Lunge Surface Blue BOSU PT-OP-T Assessment and Plan Start: 03/31/22 15:42 Freq: Status: Active Protocol: Document 05/31/22 09:45 DCW (Rec: 05/31/22 10:31 DCW [id number]) Physical Therapy Assessment Impairments Impairments Activity Tolerance,Balance, Functional Activities, Functional Mobility,Gait, Integument,Pain,ROM,Soft Tissue Mobility,Strength Goals Three Impairment Pt scores as an increased falls risk, per TUG (20.17 /c FWW) Halfway Goal (LTG) Pt to improve TUG score to <13 seconds without an assistive device to demonstrate reduced falls risk. LTG Duration 06/12/22 Two Impairment Significant limitations in right knee ROM Customer Marketing Manager Goal (LTG) Pt to improve right knee ROM to 0-120? in order to improve ability to ascend/descend stairs. LTG Duration 06/12/22 One Impairment Pt does not have an appropriate home exercise program Short Term Goal (STG) Pt to be independent and compliant with an appropriate HEP STG Duration 05/12/22 Assessment Summary Assessment Pt continues to progress well, approaching 120? AROM, measured today at 118? active. Discussed continued LE strengthening HEP activities, including hamstring curls and LAQ. Physical Therapy Plan Frequency and Duration Frequency of Treatment 2x/Week Plan of Care Start Date 04/12/22 Plan of Care End Date 06/12/22 Therapeutic Interventions Therapeutic Interventions Aquatic Therapy,Balance Training,Gait Training,Home Exercise Program,Joint Mobilizations,Manual Therapy, Neuromuscular Re-education, Patient/Caregiver Education, Self-Care/Home Management,Soft Tissue Mobilization, Therapeutic Activities, Therapeutic Exercises Next Visit Focus/Plan Next Note Type Treatment Note Next Visit Plan ROM, strengthening, joint mobilizations
--- NOTE | 2022-06-02 10:33 | PT.OTN ---
Current Diagnoses Unilateral primary osteoarthritis, right knee (06/02/22) Physical Therapy Treatment Note PT-OP-A Visit Information Start: 03/31/22 15:42 Freq: Status: Active Protocol: Document 06/02/22 08:52 AW (Rec: 06/02/22 10:32 AW [id number]) Out-Patient Physical Therapy Visit Information Visit Information Visit Type Treatment Note Visit Start Time 09:45 Visit Stop Time 10:30 Total Visit Minutes 45 Visit Number 15 Number of WOOD TYPE FINISHER Visits 0 Evaluation Information Evaluation Date 03/31/22 PT-OP-B Current Condition Start: 03/31/22 15:42 Freq: Status: Active Protocol: Document 04/12/22 13:45 DCW (Rec: 04/12/22 14:29 DCW [id number]) Current Condition History of Current Condition Onset Date 04/07/22 Current Complaints R TKA History of Current Condition Pt is a 61 year old female who presents to skilled therapy today five days s/p R TKA. Pt has previously undergone a pre -op PT session. Notes surgery went well overall, has been trying to get up and walk around as much as she can. Reports pain has been 8/10 at worst over last two days, had to stop taking her pain pills because they didn't agree with me. PT-OP-C Subjective Start: 03/31/22 15:42 Freq: Status: Active Protocol: Document 06/02/22 08:52 AW (Rec: 06/02/22 10:32 AW [id number]) OP-PT Subjective Patient Comments Patient Comments Ting's knee has been feeling stiff the past few days. Hot shower helps. Has increased her walking time but speed is lagging. PT-OP-E Functional Tests Start: 03/31/22 15:42 Freq: Status: Active Protocol: Document 04/12/22 13:45 DCW (Rec: 04/12/22 14:29 DCW [id number]) Functional Tests 6 Minute Walk Test Distance 505' Device Used FWW Comments 1.40 ft/sec Timed Up and Go (TUG) Score 20.17 /c FWW Comments 3-trial average (22.01, 19.57, 18.93) PT-OP-F Manual Assessment Start: 03/31/22 15:42 Freq: Status: Active Protocol: Document 04/12/22 13:45 DCW (Rec: 04/12/22 14:29 DCW [id number]) Manual Assessments Soft Tissue Assessment Soft Tissue Mobility Assessment Joint effusion, post-op bruising from ankle to mid- thigh. No redness, no increased warmth PT-OP-J Posture/Palpation/Skin Start: 03/31/22 15:42 Freq: Status: Active Protocol: Document 04/12/22 13:45 DCW (Rec: 04/12/22 14:29 DCW [id number]) Skin Assessment Circumference Measurement 10 cm inferior Location 10 cm inferior to R joint line Measurement (Centimeters) 39 Comments L = 35.3 joint line Location R joint line Measurement (Centimeters) 46.4 Comments L = 41.3 10 cm superior Location 10 cm superior to R joint line Measurement (Centimeters) 50 Comments L = 44.6 PT-OP-K Range of Motion Start: 03/31/22 15:42 Freq: Status: Active Protocol: Document 04/12/22 13:45 DCW (Rec: 04/12/22 14:29 DCW [id number]) Knee Goniometric Range of Motion Knee Right Patient Position Sitting Flexion Active (degrees) 54 Extension Active (degrees) 11 Left Patient Position Sitting Flexion Active (degrees) 123 Extension Active (degrees) 0 PT-OP-M Strength Start: 03/31/22 15:42 Freq: Status: Active Protocol: Document 04/12/22 13:45 DCW (Rec: 04/12/22 14:29 DCW [id number]) Knee Strength Knee Manual Muscle Testing Right Flexion (S2) 3+ Fair+ Extension (L3) 3- Fair- PT-OP-Q Treatments Start: 03/31/22 15:42 Freq: Status: Active Protocol: Document 06/02/22 08:52 AW (Rec: 06/02/22 10:32 AW [id number]) Cardio Equipment Recumbent Bicycle Duration (Minutes) 6 Resistance 5 Seat Position 3 Gym Equipment Shuttle Recovery Unilateral Squats Resistance 37# Bilateral Squats Details Hold in flexion Resistance 75# Reps/Time feeling weaker today due to stiffness Therapeutic Exercises Standing Exercises heel lifts Standing Exercise Name heel lifts Side bilateral Resistance bodyweight Equipment Used step, rail Reps/Minutes x20 Comments gastroc stretch on stair when finished Hip Extension Standing Exercise Name Hip Extension Side bilateral Resistance Blue Other Exercises Resisted Ambulation Other Exercise Name Side-stepping and backward Resistance Blue Manual Therapy Treatment Soft Tissue Mobilization distal quads Body Location distal quads Mobilization Type Rolling Intensity/Depth Moderate Body Position Supine Comments instructed in use of rolling pin for self STM at home Joint Mobilizations PF Joint Patella Mobs Direction Inf/Sup Grade III Body Position Supine Neuro Re-Education Treatment Balance Activities Tandem stance Details Tandem Stance Equipment // bars BOSU lunge Details BOSU Lunge and step up Surface Blue BOSU Comments hands on rails for step up PT-OP-T Assessment and Plan Start: 03/31/22 15:42 Freq: Status: Active Protocol: Document 06/02/22 08:52 AW (Rec: 06/02/22 10:32 AW [id number]) Physical Therapy Assessment Impairments Impairments Activity Tolerance,Balance, Functional Activities, Functional Mobility,Gait, Integument,Pain,ROM,Soft Tissue Mobility,Strength Goals Three Impairment Pt scores as an increased falls risk, per TUG (20.17 /c FWW) Bulk Delivery Driver Goal (LTG) Pt to improve TUG score to <13 seconds without an assistive device to demonstrate reduced falls risk. LTG Duration 06/12/22 Two Impairment Significant limitations in right knee ROM Alf Goal (LTG) Pt to improve right knee ROM to 0-120? in order to improve ability to ascend/descend stairs. LTG Duration 06/12/22 One Impairment Pt does not have an appropriate home exercise program Short Term Goal (STG) Pt to be independent and compliant with an appropriate HEP STG Duration 05/12/22 Assessment Summary Assessment Ting responded well to calf strengthening and stretching. Reduced tightness and stiffness noted after STM distal quads. Pt approaching readiness for discharge. Physical Therapy Plan Frequency and Duration Frequency of Treatment 2x/Week Plan of Care Start Date 04/12/22 Plan of Care End Date 06/12/22 Therapeutic Interventions Therapeutic Interventions Aquatic Therapy,Balance Training,Gait Training,Home Exercise Program,Joint Mobilizations,Manual Therapy, Neuromuscular Re-education, Patient/Caregiver Education, Self-Care/Home Management,Soft Tissue Mobilization, Therapeutic Activities, Therapeutic Exercises Next Visit Focus/Plan Next Note Type Treatment Note Next Visit Plan ROM, strengthening, joint mobilizations
--- NOTE | 2022-06-07 14:48 | PT.OTN ---
Current Diagnoses Unilateral primary osteoarthritis, right knee (06/07/22) Physical Therapy Treatment Note PT-OP-A Visit Information Start: 03/31/22 15:42 Freq: Status: Active Protocol: Document 06/07/22 14:30 DCW (Rec: 06/07/22 14:47 DCW [id number]) Out-Patient Physical Therapy Visit Information Visit Information Visit Type Discharge Summary Visit Start Time 14:30 Visit Stop Time 14:45 Total Visit Minutes 15 Visit Number 16 Number of SMALL PRODUCTS I ASSEMBLER Visits 0 Evaluation Information Evaluation Date 03/31/22 PT-OP-B Current Condition Start: 03/31/22 15:42 Freq: Status: Active Protocol: Document 04/12/22 13:45 DCW (Rec: 04/12/22 14:29 DCW [id number]) Current Condition History of Current Condition Onset Date 04/07/22 Current Complaints R TKA History of Current Condition Pt is a 61 year old female who presents to skilled therapy today five days s/p R TKA. Pt has previously undergone a pre -op PT session. Notes surgery went well overall, has been trying to get up and walk around as much as she can. Reports pain has been 8/10 at worst over last two days, had to stop taking her pain pills because they didn't agree with me. PT-OP-C Subjective Start: 03/31/22 15:42 Freq: Status: Active Protocol: Document 06/07/22 14:30 DCW (Rec: 06/07/22 14:47 DCW [id number]) OP-PT Subjective Patient Comments Patient Comments Pt reports she is feeling good about everything, I got it all figured out. PT-OP-E Functional Tests Start: 03/31/22 15:42 Freq: Status: Active Protocol: Document 06/07/22 14:30 DCW (Rec: 06/07/22 14:48 DCW [id number]) Functional Tests Timed Up and Go (TUG) Score 9.12 Comments 3-trial average (10.26, 8.98, 8.13) PT-OP-F Manual Assessment Start: 03/31/22 15:42 Freq: Status: Active Protocol: Document 04/12/22 13:45 DCW (Rec: 04/12/22 14:29 DCW [id number]) Manual Assessments Soft Tissue Assessment Soft Tissue Mobility Assessment Joint effusion, post-op bruising from ankle to mid- thigh. No redness, no increased warmth PT-OP-J Posture/Palpation/Skin Start: 03/31/22 15:42 Freq: Status: Active Protocol: Document 04/12/22 13:45 DCW (Rec: 04/12/22 14:29 DCW [id number]) Skin Assessment Circumference Measurement 10 cm inferior Location 10 cm inferior to R joint line Measurement (Centimeters) 39 Comments L = 35.3 joint line Location R joint line Measurement (Centimeters) 46.4 Comments L = 41.3 10 cm superior Location 10 cm superior to R joint line Measurement (Centimeters) 50 Comments L = 44.6 PT-OP-K Range of Motion Start: 03/31/22 15:42 Freq: Status: Active Protocol: Document 06/07/22 14:30 DCW (Rec: 06/07/22 14:48 DCW [id number]) Knee Goniometric Range of Motion Knee Right Patient Position Sitting Flexion Active (degrees) 121 Extension Active (degrees) 0 PT-OP-M Strength Start: 03/31/22 15:42 Freq: Status: Active Protocol: Document 04/12/22 13:45 DCW (Rec: 04/12/22 14:29 DCW [id number]) Knee Strength Knee Manual Muscle Testing Right Flexion (S2) 3+ Fair+ Extension (L3) 3- Fair- PT-OP-Q Treatments Start: 03/31/22 15:42 Freq: Status: Active Protocol: Document 06/07/22 14:30 DCW (Rec: 06/07/22 14:47 DCW [id number]) Cardio Equipment Recumbent Bicycle Duration (Minutes) 6 Resistance 5 Seat Position 1 Manual Therapy Treatment Other Other Manual Treatments TUG, ROM PT-OP-T Assessment and Plan Start: 03/31/22 15:42 Freq: Status: Active Protocol: Document 06/07/22 14:30 DCW (Rec: 06/07/22 14:47 DCW [id number]) Physical Therapy Assessment Impairments Impairments Activity Tolerance,Balance, Functional Activities, Functional Mobility,Gait, Integument,Pain,ROM,Soft Tissue Mobility,Strength Goals Three Impairment Pt scores as an increased falls risk, per TUG (20.17 /c FWW) Jail Goal (LTG) Pt to improve TUG score to <13 seconds without an assistive device to demonstrate reduced falls risk. LTG Duration Met Two Impairment Significant limitations in right knee ROM Motors And Controls Tester Goal (LTG) Pt to improve right knee ROM to 0-120? in order to improve ability to ascend/descend stairs. LTG Duration Met One Impairment Pt does not have an appropriate home exercise program Short Term Goal (STG) Pt to be independent and compliant with an appropriate HEP STG Duration Met Progress Towards Goals Progress Towards Goals Goals Met Assessment Summary Assessment Pt feels ready for discharge, special testing performed today shows pt has met or exceeded all original goals. Pt feels comfortable with HEP, has no questions or concerns at this time. Pt will be discharged from skilled PT. Physical Therapy Plan Frequency and Duration Frequency of Treatment 2x/Week Plan of Care Start Date 04/12/22 Plan of Care End Date 06/12/22 Therapeutic Interventions Therapeutic Interventions Aquatic Therapy,Balance Training,Gait Training,Home Exercise Program,Joint Mobilizations,Manual Therapy, Neuromuscular Re-education, Patient/Caregiver Education, Self-Care/Home Management,Soft Tissue Mobilization, Therapeutic Activities, Therapeutic Exercises Discharge Physical Therapy Discharge Reasons Goals Met Next Visit Focus/Plan Next Note Type Discharge Summary
== END 2022-07-02 11:24 | disposition home or self-care (01) ==
LOC: PHYS 14:30
PROVIDERS: Family Provider Family Medicine; PCP Family Medicine; Referring Provider Orthopaedic Surgery; Visit Provider Orthopaedic Surgery
DX: M17.11 Unilateral primary osteoarthritis, right knee (principal)
CPT/HCPCS: 97110; 97112; 97116; 97140; 97161; 97164; 97530; 97535

== ENCOUNTER 2023-07-13 10:11 | Emergency (ER) | payer MEDICARE, OTHER, SELFPAY ==
[2023-07-13] VITALS (23 sets, daily range): BP systolic 147–202; BP diastolic 78–100; PULSE 70–104; RESP 13–28; TEMP 36.8; O2SAT 94–100; BMI 28.3
--- NOTE | 2023-07-13 10:23 | DI.RAD.S_ITS ---
PROCEDURE: XR CHEST 1V INDICATIONS: chest pain TECHNIQUE: One view of the chest was acquired. COMPARISON: None. FINDINGS: Surgical changes and devices: None. Lungs and pleura: Lungs are clear. No pleural effusions or pneumothorax. Mediastinum: Mediastinal contours appear normal. Heart size is normal. Bones and chest wall: No suspicious bony lesions. Overlying soft tissues appear unremarkable. IMPRESSION: No acute cardiopulmonary abnormality is seen. Dictated by: Carolina Do M.D. on 07/13/2023 at 10:58 Approved by: Carolina Do M.D. on 07/13/2023 at 10:58
[2023-07-13] MEDS: ASPIRIN 81 MG CHEW TAB 324 MG PO (10:30)
[2023-07-13 10:44] LABS: Add Manual Diff / Slide Review NO; Basophils Absolute Auto 100 /uL (0-100); Basophils Percent Auto 1.1 % (0-2); Eosinophils Absolute Auto 200 /uL (0-450); Eosinophils Percent Auto 3.4 % (2-4); Hematocrit 41.6 % (36-46); Hemoglobin 14.7 g/dL (12.0-16.0); Lymphocytes Absolute Auto 1400 /uL (1100-4500); Lymphocytes Percent Auto 25.7 % (25-40); Mean Corpuscular HGB Conc 35.4 % (30-36); Mean Corpuscular Hemoglobin 31.7 PG (26-34); Mean Corpuscular Volume 89.6 fL (80-100); Monocytes Absolute Auto 500 /uL (0-900); Monocytes Percent Auto 8.8 % (3-14); Neutrophils Absolute Auto 3200 /uL (1500-7000); Platelet Count 167 X10^3/uL (150-400); Red Blood Cell Count 4.65 X10^6/uL (4.0-5.2); Red Cell Distribution Width 12.9 % (11.6-14.8); White Blood Cell Count 5.3 X10^3/uL (4.5-11.0)
[2023-07-13 10:52] LABS: PTT Partial Thromboplastin Tim 35 SECONDS (25.1-36.5)
[2023-07-13 10:53] LABS: Alanine Aminotransferase 19 IU/L (<35); Albumin 4.4 g/dL (3.5-5.0); Albumin Globulin Ratio 1.3 (1.0-2.8); Alkaline Phosphatase 94 U/L (38-126); Aspartate Aminotransferase 25 IU/L (14-36); Bilirubin Total 0.8 mg/dL (0.2-1.3); Blood Urea Nitrogen 14 mg/dL (7-17); Calcium 9.2 mg/dL (8.4-10.2); Carbon Dioxide 25 mmol/L (22-32); Chloride 108 mmol/L (98-107); Creatine Kinase 24 U/L (30-135); Estimated Glomerular Filt Rate > 60 mL/min (>60); Globulin 3.3 g/dL (1.7-4.1); Glucose 100 mg/dL (80-110); HEMOLYSIS < 15 (0-50); Lipase 110 U/L (23-300); Potassium 3.6 mmol/L (3.4-5.1); Sodium 140 mmol/L (137-145); Total Protein 7.7 g/dL (6.3-8.2)
[2023-07-13 11:04] LABS: Troponin I < 0.012 ng/mL (0.01-0.034)
--- NOTE | 2023-07-13 11:46 | ED.CHESTPAIN ---
HPI - Chest Pain General Chief Complaint: Chest Pain Stated Complaint: heaviness on chest/ back pain Time Seen by Provider: 07/13/23 10:43 History of Present Illness HPI narrative: 63-year-old woman with no significant medical history currently on no medications comes in for chest pain. She describes it as starting yesterday while she was sitting. Begins central chest, substernal radiates between her shoulder blades. Yesterday at lasted for 4-5 hours. She was able to get some sleep. It awoke her from sleep at 5:30 a.m. this morning and has completely resolved by 04 14 this morning. She did not note any exacerbation in the pain with activity such as taking a shower or getting ready to come into the hospital. She denies diaphoresis and dyspnea. She has no history of reflux, constipation, abdominal issues or gallbladder disease. Family history is significant for a mother and a brother both with significant cardiac history and a father who apparently had a pulmonary embolism. Related Data Previous Rx's Medication Instructions Recorded acetaminophen 325 mg tablet 650 mg (2 x 325 mg) PO Q6H PRN 04/07/22 Fever/Mild Pain (1-3) #250 tabs hydroxyzine pamoate 25 mg capsule 25 mg PO Q6HR PRN Spasms #30 caps 04/07/22 ibuprofen 600 mg tablet 600 mg PO Q6HR PRN Fever/Mild Pain 04/07/22 (1-3) #250 tabs tramadol 50 mg tablet 50 mg PO Q8H PRN pain #10 tabs 07/01/22 celecoxib 400 mg capsule (Celebrex) 400 mg PO DAILY #30 caps 01/11/23 Allergies Allergy/AdvReac Type Severity Reaction Status Date / Time No Known Drug Allergies Allergy Verified 07/13/23 10:29 Review of Systems Review of Systems Narrative: Pertinent positive and negative findings as per HPI Patient History Medical History Chronic pain of left knee Osteoarthritis BMI 30.0-30.9,adult Screening for breast cancer Screening for hyperlipidemia Screen for colon cancer Knee pain Arthritis Surgical History Status post total knee replacement, right No history of previous surgery Family History Father Cancer Mother Congestive heart failure Hypertension Stroke Brother Hypertension History of heart disease Social History household members: spouse Smoking Status: Never smoker alcohol intake: current Smoking Status: Never smoker alcohol intake frequency: 0-2 drinks per day Substance Use Type: does not use Exam Initial Vital Signs Initial Vital Signs: Vital Signs Pulse Rate 97 H 07/13/23 10:19 Respiratory Rate 20 07/13/23 10:19 Pulse Oximetry 98 07/13/23 10:19 General: Healthy appearing, in no acute distress. Able to give a complete and coherent history. Well-nourished well-developed HEENT: Moist mucous membranes, normal sclera with reactive pupils, Neck: No JVD, supple Respiratory: Lungs are clear to auscultation, no wheezing no rales no rhonchi. Full and symmetrical air movement Chest: No reproducible chest pain to palpation, no skin tire changer aircraft her chest wall Cardiac: Regular rate and rhythm no murmurs no bruits Abdomen: Soft, nontender, good bowel tones, no flank pain Skin: Warm and dry, no rashes Neurologic: Grossly neurologically intact with no obvious asymmetries or abnormalities Extremities: No trauma, well perfused Psych: Cooperative, appropriate insight and affect Course Orders Ordered: ED Orders 07/13/23 10:23 XR chest 1V Stat EKG-12 Lead Stat 07/13/23 10:30 Complete Blood Count AUTO DIFF Stat Comprehensive Metabolic Panel Stat Lipase Stat Magnesium Stat PTT Partial Thromboplastin Nghia Stat Prothrombin Time INR Stat Troponin & CK Cardiac Panel Stat 07/13/23 11:15 D Dimer Stat 07/13/23 12:54 Trop I [Troponin I] Stat 07/13/23 14:02 EKG-12 Lead Stat 07/13/23 14:03 CT angio chest PE protocol Stat Discontinued Medications Aspirin (Aspirin 81 Mg Chew Tab) 324 mg PO NOW ONE Stop: 07/13/23 10:24 Last Admin: 07/13/23 10:30 Dose: 324 mg Documented By: CTS Vital Signs Vital signs: Vital Signs - 8 hr 07/13/23 10:19 07/13/23 10:20 07/13/23 10:26 Temperature 98.3 F Pulse Rate 97 H 104 H 84 Respiratory Rate 20 16 21 Blood Pressure 178/90 H Pulse Oximetry 98 97 97 Oxygen Delivery Method Room Air 07/13/23 10:26 07/13/23 10:30 07/13/23 10:30 Temperature Pulse Rate 95 H Respiratory Rate 19 Blood Pressure 167/82 H 168/89 H Pulse Oximetry 98 Oxygen Delivery Method 07/13/23 10:32 07/13/23 10:32 07/13/23 11:00 Temperature Pulse Rate 89 77 Respiratory Rate 15 14 Blood Pressure 161/100 H Pulse Oximetry 97 94 Oxygen Delivery Method 07/13/23 11:00 07/13/23 11:30 07/13/23 11:32 Temperature Pulse Rate 83 79 Respiratory Rate 28 H 19 Blood Pressure 147/82 H Pulse Oximetry 95 96 Oxygen Delivery Method 07/13/23 11:32 07/13/23 12:00 07/13/23 12:00 Temperature Pulse Rate 70 Respiratory Rate 16 Blood Pressure 176/91 H 164/90 H Pulse Oximetry 95 Oxygen Delivery Method 07/13/23 12:30 07/13/23 12:30 07/13/23 14:42 Temperature Pulse Rate 70 77 Respiratory Rate 17 13 Blood Pressure 164/78 H Pulse Oximetry 96 97 Oxygen Delivery Method 07/13/23 14:43 07/13/23 14:43 07/13/23 14:58 Temperature Pulse Rate 77 83 Respiratory Rate 14 18 Blood Pressure 202/93 H Pulse Oximetry 98 98 Oxygen Delivery Method 07/13/23 14:58 Temperature Pulse Rate Respiratory Rate Blood Pressure 183/91 H Pulse Oximetry Oxygen Delivery Method MDM - Chest Pain Lab Data 07/13/23 10:30 07/13/23 10:30 Labs: Lab Results 07/13/23 07/13/23 07/13/23 Range/Units 10:30 11:15 12:54 WBC 5.3 (4.5-11.0) X10^3/uL RBC 4.65 (4.0-5.2) X10^6/uL Hgb 14.7 (12.0-16.0) g/dL Hct 41.6 (36-46) % MCV 89.6 (80-100) fL MCH 31.7 (26-34) PG MCHC 35.4 (30-36) % RDW 12.9 (11.6-14.8) % Plt Count 167 (150-400) X10^3/uL Neut % (Auto) 61.0 (50-75) % Lymph % (Auto) 25.7 (25-40) % Carolina % (Auto) 8.8 (3-14) % Eos % (Auto) 3.4 (2-4) % Baso % (Auto) 1.1 (0-2) % Neut # (Auto) 3200 (0698-9937) /uL Lymph # (Auto) 1400 (7462-4712) /uL Carolina # (Auto) 500 (0-900) /uL Eos # (Auto) 200 (0-450) /uL Baso # (Auto) 100 (0-100) /uL PT 11.0 (9.4-12.5) SECONDS INR 1.0 (0.9-1.3) APTT 35 (25.1-36.5) SECONDS D-Dimer 794 H (<500) ng/ml Sodium 140 (137-145) mmol/L Potassium 3.6 (3.4-5.1) mmol/L Chloride 108 H (98-107) mmol/L Carbon Dioxide 25 (22-32) mmol/L BUN 14 (7-17) mg/dL Creatinine 0.61 (0.52-1.04) mg/dL Estimated GFR > 60 (>60) mL/min BUN/Creatinine Ratio 23.0 H (6-22) Glucose 100 (80-110) mg/dL Calcium 9.2 (8.4-10.2) mg/dL Magnesium 2.0 (1.6-2.3) mg/dL Total Bilirubin 0.8 (0.2-1.3) mg/dL AST 25 (14-36) IU/L ALT 19 (<35) IU/L Alkaline Phosphatase 94 (38-126) U/L Total Creatine Kinase 24 L (30-135) U/L Troponin I < 0.012 < 0.012 (0.01-0.034) ng/mL Total Protein 7.7 (6.3-8.2) g/dL Albumin 4.4 (3.5-5.0) g/dL Globulin 3.3 (1.7-4.1) g/dL Albumin/Globulin Ratio 1.3 (1.0-2.8) Lipase 110 (23-300) U/L Imaging Data CT chest angiogram: Radiologist's Impression: PROCEDURE: CT ANGIO CHEST PE PROTOCOL INDICATIONS: elevated d dimer TECHNIQUE: After the administration of intravenous contrast, 2 mm thick sections acquired from the pulmonary apices to the posterior costophrenic angles. 3-dimensional maximum intensity projection (MIP) coronal and sagittal reformats were then acquired through the thorax. For radiation dose reduction, the following was used: automated exposure control, adjustment of mA and/or kV according to patient size. COMPARISON: None. FINDINGS: Image quality: Diagnostic. Pulmonary arteries: Pulmonary arteries are normal in size, and demonstrate no intraluminal filling defects to suggest central pulmonary embolism. Lower Neck: No enlarged lymph nodes. Thyroid: No thyroid nodules which require sonographic follow up, per consensus guidelines. Axillae: No enlarged lymph nodes. Chest Wall: Unremarkable. Bones: Unremarkable. Lungs and Pleura: No pneumothorax or pleural effusions. No consolidation or suspicious nodules. Heart: Heart size is normal. No pericardial effusion. Calcification of the coronary vasculature is present. Thoracic Vessels: No aortic aneurysm. Mediastinum and Deann: No enlarged lymph nodes. Esophagus: No wall thickening. Small hiatal hernia. Upper Abdomen: Visualized portions of the upper abdomen demonstrate a calcified, enhancing partially exophytic mass involving the superior pole right kidney, measuring 53 mm. IMPRESSION: 1. No pulmonary embolus. 2. Right superior pole renal cell carcinoma. Nonemergent outpatient urology consultation and imaging workup is recommended. 3. Coronary artery disease. 4. Small hiatal hernia. Dictated by: Carolina Do M.D. on 07/13/2023 at 15:15 MDM Narrative Medical decision making narrative: CC: Substernal chest pain radiating through to her back Complicating co-morbidities: No significant medical history Data collected from: patient Differential considered: ACS, esophageal abnormality, pulmonary embolism, pancreatitis, gallbladder disease Exam documented above, pertinent findings include: Exam is entirely benign. She is pain-free at time of my exam Lab Test results independently reviewed as above. Pertinent findings: CBC is unremarkable Chemistries are reassuring with no electrolyte or renal abnormalities Initial troponin is undetectable Lipase is appropriate Independently reviewed EKG: EKG shows sinus rhythm at a rate of 80. Normal intervals, leftward axis, no ischemic changes Imaging studies independently reviewed: Chest x-ray shows no acute abnormality CT angiogram is unremarkable in terms of pulmonary embolism or pulmonary pathology however incidentally is noted calcified, enhancing partially exophytic mass involving the superior pole right kidney, measuring 53 mm. Consultations: Message is left with Urology office, Dr. Bell. Patient will call for consultation appointment Discussion: 63-year-old woman no significant medical history who presented with substernal sharp stabbing chest pain radiating through the back 2 episodes each lasting 5-6 hours. Cardiac and thoracic workup or unremarkable. No evidence of acute coronary syndrome, pulmonary embolism, infection, pneumomediastinum. Incidental finding on the CT angiogram is a almost 53 mm exophytic mass likely a cancer in the superior pole of the right kidney. Findings reviewed with the patient. If she has this sharp stabbing substernal pain again I did suggest trying Maalox to see if there was an esophageal component. Reviewed all of the reassuring blood work and chest CT scan findings. Discussed the kidney mass and need for urology follow up. 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 His office is notified of the need for consultation as an outpatient. She is safe for discharge at this time Discharge Plan Departure Patient Disposition: Home Clinical Impression: Chest pain, non-cardiac, Mass of right kidney Instructions: DI for Kidney Cancer, DI for Atypical Chest Pain Activity Restrictions/Additional Instructions: Thank you for coming in today Your blood workup was quite reassuring. There was no evidence of heart attack, pulmonary infection, blood clots in your lungs, other lung abnormalities. If you have the recurrent substernal chest pain again. I would recommend trying some [id number] Maalox. Sometimes esophageal abnormalities can cause the same type of pain Incidentally found on your CT scan was a 5.3 cm mass on the top of your right kidney. It is not causing any immediate problems but does need follow up. I have contacted Dr. Bell's office to make them aware of need for outpatient consult. I would encourage you to call his office to schedule an appointment as well the office phone number is [phone]. If you find that you are getting worse or develop any new symptoms, please feel free to return to the emergency department for further evaluation. Prescriptions: No Action celecoxib [Celebrex] 400 mg capsule 400 mg PO DAILY Qty: 30 5RF Rx Instructions: [place] approved start date 06/06/2022 end date 07/06/2023 tramadol 50 mg tablet 50 mg PO Q8H PRN (Reason: pain) Qty: 10 0RF acetaminophen 325 mg Tablet 650 mg PO Q6H PRN (Reason: Fever/Mild Pain (1-3)) Qty: 250 0RF ibuprofen 600 mg Tablet 600 mg PO Q6HR PRN (Reason: Fever/Mild Pain (1-3)) Qty: 250 0RF Hold Instructions: Trying Celebrex hydroxyzine pamoate 25 mg Capsule 25 mg PO Q6HR PRN (Reason: Spasms) Qty: 30 0RF Referrals: Kody Penaloza DO [Primary Care Provider] - Stand Alone Forms: Patient Portal/API
[2023-07-13 12:51] LABS: D Dimer 794 ng/ml (<500)
--- NOTE | 2023-07-13 14:03 | DI.CT.S_ITS ---
PROCEDURE: CT ANGIO CHEST PE PROTOCOL INDICATIONS: elevated d dimer TECHNIQUE: After the administration of intravenous contrast, 2 mm thick sections acquired from the pulmonary apices to the posterior costophrenic angles. 3-dimensional maximum intensity projection (MIP) coronal and sagittal reformats were then acquired through the thorax. For radiation dose reduction, the following was used: automated exposure control, adjustment of mA and/or kV according to patient size. COMPARISON: None. FINDINGS: Image quality: Diagnostic. Pulmonary arteries: Pulmonary arteries are normal in size, and demonstrate no intraluminal filling defects to suggest central pulmonary embolism. Lower Neck: No enlarged lymph nodes. Thyroid: No thyroid nodules which require sonographic follow up, per consensus guidelines. Axillae: No enlarged lymph nodes. Chest Wall: Unremarkable. Bones: Unremarkable. Lungs and Pleura: No pneumothorax or pleural effusions. No consolidation or suspicious nodules. Heart: Heart size is normal. No pericardial effusion. Calcification of the coronary vasculature is present. Thoracic Vessels: No aortic aneurysm. Mediastinum and Deann: No enlarged lymph nodes. Esophagus: No wall thickening. Small hiatal hernia. Upper Abdomen: Visualized portions of the upper abdomen demonstrate a calcified, enhancing partially exophytic mass involving the superior pole right kidney, measuring 53 mm. IMPRESSION: 1. No pulmonary embolus. 2. Right superior pole renal cell carcinoma. Nonemergent outpatient urology consultation and imaging workup is recommended. 3. Coronary artery disease. 4. Small hiatal hernia. Dictated by: Carolina Do M.D. on 07/13/2023 at 15:15 Approved by: Carolina Do M.D. on 07/13/2023 at 15:40
[2023-07-13 14:36] LABS: Troponin I < 0.012 ng/mL (0.01-0.034)
== END 2023-07-13 17:12 | disposition home or self-care (01) ==
PROVIDERS: Emergency Provider Emergency Medicine; Family Provider Family Medicine; PCP Family Medicine
DX: R07.89 Other chest pain (principal); N28.89 Other specified disorders of kidney and ureter
CPT/HCPCS: 36415; 71045; 71275; 80053; 82550; 83690; 83735; 84484; 85025; 85379; 85610; 85730; 93005; 99284; Q9967

== ENCOUNTER → 2023-07-15 14:45 | Outpatient (CLI) | payer MEDICARE, OTHER, SELFPAY ==
--- NOTE | 2023-07-15 14:47 | DI.CT.S_ITS ---
PROCEDURE: CT ABDOMEN RENAL PROTOCOL INDICATIONS: Right upper pole renal mass TECHNIQUE: Optional 5 mm thick noncontrast images acquired from the diaphragm to the iliac crests. After the administration of intravenous contrast, 5 mm thick images again acquired from the diaphragm to the iliac crests in the arterial and urographic phases. 5 mm thick coronal and sagittal reformats were then acquired. For radiation dose reduction, the following was used: automated exposure control, adjustment of mA and/or kV according to patient size. COMPARISON: [facility], CT, CT ANGIO CHEST PE PROTOCOL, 07/13/2023, 14:41. FINDINGS: Image quality: Diagnostic. Kidneys and Ureters: Enhancing solid mass on the superior pole of the right kidney measuring 5.1 x 5.2 x 5.0 cm. Lobe central hypoattenuation is present, likely necrosis. The mass is partially endophytic, and there is a lack of fat plane between the adjacent liver and the mass. No renal vein invasion. No retroperitoneal adenopathy. OTHER: Lower chest: Unremarkable. Liver: Scattered subcentimeter hypoattenuating lesions, too small to characterize by CT but probably small cysts. Gallbladder: No radiopaque gallstones or wall thickening. Biliary ducts: No biliary dilation. Pancreas: No ductal dilation. Spleen: Size is within normal limits. Adrenal Glands: No adrenal nodules. Stomach and Bowel: Normal colonic caliber, without significant wall thickening. Peritoneum: No abnormal intraperitoneal fluid. No free air. Ventral Wall: No hernia. Abdominal Nodes: No retroperitoneal or mesenteric adenopathy by size criteria. Vessels: Aorta and inferior vena cava are normal in size. Bones: No aggressive osseous abnormality. IMPRESSION: 5.1 x 5.2 x 5.0 cm enhancing mass with central necrosis along the superior pole of the right kidney. Lack of fat plane between the mass and the liver. No renal vein invasion. No retroperitoneal adenopathy. Dictated by: Seth Aldana M.D. on 07/15/2023 at 16:41 Approved by: Seth Aldana M.D. on 07/15/2023 at 16:44
== END ==
PROVIDERS: Family Provider Family Medicine; PCP Family Medicine; Referring Provider Urology; Visit Provider Urology
DX: N28.89 Other specified disorders of kidney and ureter (principal)
CPT/HCPCS: 74170; Q9967

== ENCOUNTER → 2023-08-24 11:48 | Outpatient (CLI) | payer MEDICARE, OTHER, SELFPAY ==
[2023-08-24 13:26] LABS: Appearance Urine UA CLEAR; Bilirubin Urine UA NEGATIVE (NEGATIVE); Color Urine UA YELLOW; Glucose Urine UA NEGATIVE (Negative); Ketones Urine UA NEGATIVE (NEGATIVE); Leukocyte Esterase Urine UA NEGATIVE (NEGATIVE); Nitrite Urine UA NEGATIVE (Negative); Occult Blood Urine UA TRACE-INTACT (Negative); Protein Urine UA NEGATIVE (Negative); Specific Gravity Urine UA 1.015 (1.000-1.035); Urobilinogen Urine UA 0.2 E.U./dL (0.2)
[2023-08-24 13:42] LABS: Urine Volume 10mL (spun)
[2023-08-24 13:43] LABS: Bacteria Urine None Seen; Culture Indicated Urine Cult Not Indicated; RBC Urine 1-5/HPF (0-5/HPF); Squamous Epithelial Cell Urine 0-1 /HPF (0-5/HPF); WBC Urine None Seen (0-5/HPF)
== END ==
LOC: LAB 11:52
PROVIDERS: Family Provider Family Medicine; PCP Family Medicine; Referring Provider Urology; Visit Provider Urology
DX: N28.89 Other specified disorders of kidney and ureter (principal)
CPT/HCPCS: 81001

== ENCOUNTER → 2023-09-20 11:34 | Outpatient (CLI) | payer MEDICARE, OTHER, SELFPAY ==
[2023-09-20 13:39] LABS: Cholesterol 248 mg/dL (140-199); HDL Cholesterol 65 mg/dL (40-60); LDL Cholesterol Calculated 161 mg/dL (<100); Triglycerides 110 mg/dL (35-150)
[2023-09-20 13:58] LABS: TSH w/ Reflex to FT4 1.57 uIU/mL (0.47-4.68)
== END ==
PROVIDERS: Family Provider Family Medicine; PCP Family Medicine; Referring Provider Physician Assistant; Visit Provider Physician Assistant
DX: C64.1 Malignant neoplasm of right kidney, except renal pelvis (principal); E78.5 Hyperlipidemia, unspecified
CPT/HCPCS: 36415; 80061; 84443

== ENCOUNTER → 2023-11-08 07:52 | Outpatient (CLI) | payer MEDICARE, OTHER, SELFPAY ==
[2023-11-08 08:47] LABS: Add Manual Diff / Slide Review NO; Basophils Absolute Auto 0 /uL (0-100); Basophils Percent Auto 0.9 % (0-2); Eosinophils Absolute Auto 400 /uL (0-450); Eosinophils Percent Auto 9.7 % (2-4); Hematocrit 40.1 % (36-46); Hemoglobin 13.8 g/dL (12.0-16.0); Lymphocytes Absolute Auto 900 /uL (1100-4500); Lymphocytes Percent Auto 19.6 % (25-40); Mean Corpuscular HGB Conc 34.4 % (30-36); Mean Corpuscular Hemoglobin 30.7 PG (26-34); Mean Corpuscular Volume 89.2 fL (80-100); Monocytes Absolute Auto 600 /uL (0-900); Monocytes Percent Auto 12.9 % (3-14); Neutrophils Absolute Auto 2600 /uL (1500-7000); Neutrophils Percent Auto 56.9 % (50-75); Platelet Count 181 X10^3/uL (150-400); Red Cell Distribution Width 13.4 % (11.6-14.8); White Blood Cell Count 4.6 X10^3/uL (4.5-11.0)
[2023-11-08 09:22] LABS: Alanine Aminotransferase 65 IU/L (<35); Albumin 4.3 g/dL (3.5-5.0); Albumin Globulin Ratio 1.5 (1.0-2.8); Alkaline Phosphatase 195 U/L (38-126); Aspartate Aminotransferase 63 IU/L (14-36); BUN Creatinine Ratio 14.9 (6-22); Blood Urea Nitrogen 18 mg/dL (7-17); Calcium 9.4 mg/dL (8.4-10.2); Carbon Dioxide 27 mmol/L (22-32); Chloride 107 mmol/L (98-107); Estimated Glomerular Filt Rate 50 mL/min (>60); Globulin 2.9 g/dL (1.7-4.1); Glucose 98 mg/dL (80-110); HEMOLYSIS < 15 (0-50); Potassium 4.1 mmol/L (3.4-5.1); Sodium 140 mmol/L (137-145); Total Protein 7.2 g/dL (6.3-8.2)
== END ==
PROVIDERS: Family Provider Family Medicine; PCP Family Medicine; Referring Provider Urology; Visit Provider Urology
DX: C64.1 Malignant neoplasm of right kidney, except renal pelvis (principal)
CPT/HCPCS: 36415; 80053; 85025

== ENCOUNTER → 2023-11-10 13:54 | Outpatient (CLI) | payer MEDICARE, OTHER, SELFPAY ==
--- NOTE | 2023-11-10 13:56 | DI.CT.S_ITS ---
PROCEDURE: CT CHEST ABDOMEN W CON INDICATIONS: Clear cell carcinoma of right kidney TECHNIQUE: After the administration of intravenous contrast, 5 mm thick sections acquired from the lung apices to the iliac crests. 5 mm coronal and sagittal reformats were performed, with additional 7 mm coronal MIP reformats through the lungs. For radiation dose reduction, the following was used: automated exposure control, adjustment of mA and/or kV according to patient size. COMPARISON: [facility], CT, CT ABDOMEN RENAL PROTOCOL, 07/15/2023, 15:11. [facility], CT, CT ANGIO CHEST PE PROTOCOL, 07/13/2023, 14:41. FINDINGS: Image quality: Diagnostic. CHEST: Lower Neck: No enlarged lymph nodes. Thyroid: Normal CT appearance. Axillae: No enlarged lymph nodes. Chest Wall: No suspicious masses. Bones: No suspicious bone lesions. Lungs and Pleura: No suspicious lung masses. Scattered calcified micro nodules. Mild gravitational changes posteriorly. Left lung base atelectasis. No acute ground-glass opacities, consolidations, or pleural effusions. Central and peripheral airways are normal without bronchial wall thickening or bronchiectasis. Heart: Heart size is normal. No pericardial effusion. Mild coronary calcification. Thoracic Vessels: The aorta and pulmonary arteries demonstrate normal size. Mediastinum and Deann: No enlarged lymph nodes. Esophagus: No wall thickening. No hiatal hernia. ABDOMEN: Liver: Occasional subcentimeter hypodensities in the right and left hepatic lobes too small to characterize could but likely simple cysts. No significant change compared to prior. Gallbladder: No wall thickening or calcified stones. Biliary ducts: No biliary dilation. Pancreas: No ductal dilation. Spleen: Size is within normal limits. Adrenal Glands: No adrenal nodules. Kidneys and Ureters: Surgical changes of right nephrectomy. Soft tissue thickening in the right renal fossa along the medial margin of the liver and posterior retroperitoneal surface. No enhancing mass. The left kidney enhances homogeneously throughout the cortex. A 1.8 cm partially exophytic cyst arises from the posterior upper pole. Stomach and Bowel: Stomach and visible bowel loops are within normal limits. Peritoneum: No abnormal intraperitoneal fluid. No free air. Ventral Wall: No significant ventral hernia. Abdominal Nodes: No retroperitoneal or mesenteric adenopathy by size criteria. Vessels: The abdominal aorta, IVC, and portal vein are of normal caliber. Bones: No aggressive osseous abnormality. IMPRESSION: Resection of right upper pole renal cell carcinoma. There is residual low-density soft tissue along the medial aspect of segment six in the liver where there was close association with the renal tumor. Attention to this area and follow-up studies is recommended. No evidence of metastatic disease in the chest. Dictated by: Mgada Gallegos M.D. on 11/10/2023 at 17:40 Approved by: Magda Gallegos M.D. on 11/10/2023 at 17:59
== END ==
PROVIDERS: Family Provider Family Medicine; PCP Family Medicine; Referring Provider Nurse Practitioner Adult Health; Visit Provider Nurse Practitioner Adult Health
DX: C64.1 Malignant neoplasm of right kidney, except renal pelvis (principal); I25.10 Atherosclerotic heart disease of native coronary artery without angina pectoris; N28.1 Cyst of kidney, acquired
CPT/HCPCS: 71260; 74160; Q9967

== ENCOUNTER → 2024-01-04 12:03 | Outpatient (CLI) | payer MEDICARE, OTHER, SELFPAY ==
--- NOTE | 2024-01-04 12:05 | DI.RAD.S_ITS ---
PROCEDURE: XR CERVICAL SPINE 2V OR 3V INDICATIONS: neck pain TECHNIQUE: 3 view(s) of the cervical spine were acquired. COMPARISON: None. FINDINGS: Bones: No fractures or dislocations to the T1 level. The lateral masses of C1 appear intact on the odontoid view. No suspicious bony lesions. Mild disc height loss at all levels. Diffuse facet arthrosis, most prominent on the left side at C3-4, C4-5, C5-6. Soft tissues: No prevertebral soft tissue swelling. IMPRESSION: Mild, multilevel degenerative disc disease and diffuse facet arthrosis. Dictated by: Seth Aldana M.D. on 01/04/2024 at 16:39 Approved by: Seth Aldana M.D. on 01/04/2024 at 16:39
== END ==
PROVIDERS: Family Provider Family Medicine; PCP Family Medicine; Referring Provider Family Medicine; Visit Provider Family Medicine
DX: M47.816 Spondylosis without myelopathy or radiculopathy, lumbar region (principal); M50.30 Other cervical disc degeneration, unspecified cervical region; G89.29 Other chronic pain
CPT/HCPCS: 72040

== ENCOUNTER → 2024-06-06 11:35 | Outpatient (CLI) | payer MEDICARE, OTHER, SELFPAY ==
--- NOTE | 2024-06-06 11:36 | DI.MRI.S_ITS ---
PROCEDURE: MR CERVICAL SPINE WO CON INDICATIONS: Neck pain; pain L arm; numbness in L index middle fingers TECHNIQUE: Noncontrast sagittal T1 spin echo and T2 fast spin echo, sagittal STIR, foraminal oblique sagittal T2 fast spin echo, and axial gradient echo or T2 fast spin echo through the cervical spine. COMPARISON: None. FINDINGS: Image quality: Excellent Mild anterolisthesis C4 on C5. Mild retrolisthesis C5 on C6, C6 on C7. Vertebral body height the cervical spine are well maintained mild fibrovascular end plate change at T4-5. Small vertebral hemangioma in T4 vertebral body. Marrow signal of the cervical spine is within normal limit. Multilevel disc bulge and disc desiccation. Cord signal : Unremarkable. Right neural foraminal stenosis: Mild at C4-5, C5-6. Left neural foraminal stenosis: Moderate at C2-3, severe at C3-4, moderate at C4-5, mild at C6-7. Axial images: C2-3: Moderate left facet arthropathy. No central canal stenosis. C3-4: Left uncovertebral and mild left facet arthropathy. No central canal stenosis. C4-5: Left uncovertebral arthropathy fat mild bilateral facet arthropathy. No central canal stenosis. C5-6: Mild bilateral facet arthropathy. Posterior disc osteophyte complex. Mild central canal stenosis. C6-7: Mild bilateral facet arthropathy. Posterior disc osteophyte complex. Mild central canal stenosis. C7-T1: Unremarkable Other soft tissue findings: Small bilateral mastoid effusion. IMPRESSION: 1. Multilevel degenerative changes of the cervical spine, most pronounced at C3-4, where there is severe left neural foraminal stenosis. 2. Multilevel mild central canal stenosis in the cervical spine. Dictated by: Idalia Mack M.D. on 06/06/2024 at 16:34 Approved by: Idalia Mack M.D. on 06/06/2024 at 16:47
== END ==
PROVIDERS: PCP Family Medicine; Referring Provider Physician Assistant; Visit Provider Physician Assistant
DX: M47.22 Other spondylosis with radiculopathy, cervical region (principal); M48.02 Spinal stenosis, cervical region
CPT/HCPCS: 72141

== ENCOUNTER → 2024-07-30 08:11 | Outpatient (CLI) | payer MEDICARE, OTHER, SELFPAY ==
[2024-07-30 09:23] LABS: Hemoglobin A1C% w Est Avg Glu 4.6 % (4.0-6.0)
[2024-07-30 09:39] LABS: Cholesterol 178 mg/dL (140-199); HDL Cholesterol 67 mg/dL (40-60); LDL Cholesterol Calculated 94 mg/dL (<100); Triglycerides 85 mg/dL (35-150)
== END ==
PROVIDERS: PCP Family Medicine; Referring Provider Family Medicine; Visit Provider Family Medicine
DX: R73.9 Hyperglycemia, unspecified (principal); E78.5 Hyperlipidemia, unspecified
CPT/HCPCS: 36415; 80061; 83036

== ENCOUNTER → 2024-10-22 08:31 | Outpatient (CLI) | payer MEDICARE, OTHER, SELFPAY ==
[2024-10-22 09:24] LABS: Cholesterol 163 mg/dL (140-199); HDL Cholesterol 66 mg/dL (40-60); LDL Cholesterol Calculated 79 mg/dL (<100); Triglycerides 89 mg/dL (35-150)
== END ==
PROVIDERS: PCP Family Medicine; Referring Provider Internal Medicine Cardiovascular Disease; Visit Provider Internal Medicine Cardiovascular Disease
DX: E78.00 Pure hypercholesterolemia, unspecified (principal)
CPT/HCPCS: 36415; 80061

== ENCOUNTER → 2025-03-12 15:50 | Outpatient (CLI) | payer MEDICARE, OTHER, SELFPAY ==
--- NOTE | 2025-03-12 15:52 | DI.RAD.S_ITS ---
PROCEDURE: XR HAND LT MIN 3V INDICATIONS: hand pain TECHNIQUE: 3 views of the hand(s) acquired. COMPARISON: None. FINDINGS: Bones: No fractures or dislocations. Carpal bones are normally aligned. No suspicious bony lesions. Mild diffuse osteopenia. Mild degenerative disease in multiple joints as well as in the 1st CMC joint. Soft tissues: No suspicious soft tissue calcifications. IMPRESSION: Mild degenerative changes, no focal osseous lesion seen. Dictated by: Austen Brown M.D. on 03/12/2025 at 22:04 Approved by: Austen Brown M.D. on 03/12/2025 at 22:05
--- NOTE | 2025-03-12 15:52 | DI.RAD.S_ITS ---
PROCEDURE: XR HAND RT MIN 3V INDICATIONS: hand pain TECHNIQUE: 3 views of the hand(s) acquired. COMPARISON: [facility], CR, XR HAND LT MIN 3V, 03/12/2025, 15:09. FINDINGS: Bones: No fractures or dislocations. Carpal bones are normally aligned. No suspicious bony lesions. There is mild to moderate degenerative disease in multiple IP joints, especially the 3rd DIP joint. There is also signal degenerative disease in the 1st CMC joint. Soft tissues: No suspicious soft tissue calcifications. IMPRESSION: Degenerative changes, no focal osseous lesion seen. Dictated by: Austen Brown M.D. on 03/12/2025 at 22:05 Approved by: Austen Brown M.D. on 03/12/2025 at 22:07
== END ==
PROVIDERS: PCP Family Medicine; Referring Provider Family Medicine; Visit Provider Family Medicine
DX: M79.641 Pain in right hand (principal); M79.642 Pain in left hand; M79.89 Other specified soft tissue disorders
CPT/HCPCS: 36415; 73130; 86200; 86430

== ENCOUNTER → 2025-03-19 09:48 | Outpatient (CLI) | payer MEDICARE, OTHER, SELFPAY ==
--- NOTE | 2025-03-19 09:50 | DI.RAD.S_ITS ---
PROCEDURE: XR DEXA AXIAL SKELETON INDICATIONS: screening COMPARISON: None. FINDINGS: Lumbar Spine: Bone mineral density 1.125 g/cm2, T score 0.7. Left Femoral Neck: Bone mineral density 0.631 g/cm2, T score -2.0. Left Hip: Bone mineral density 0.790 g/cm2, T score -1.2. Fracture Risk Calculation (when applicable): 10-year fracture risk of a major osteoporotic fracture 11 percent and of a hip fracture 1.6 percent. (T score greater or equal to -1.0 to: NORMAL) (T score from -1.1 to -2.4: OSTEOPENIA) (T score less than or equal to -2.5: OSTEOPOROSIS) IMPRESSION: 1. By WHO (World Health Organization) criteria, this patient has low bone density (osteopenia) 2. Fracture Risk Calculation: 10 year fracture risk of a major osteoporotic fracture is 11 % and 10 year probability of hip fracture is 1.6 % 3. Medical evaluation for secondary causes of low bone density should be considered along with maximizing calcium and vitamin D nutrition. Consider repeat DEXA scan in 2- 3 years. Follow-up guidelines as follows: Osteoporosis: Consider a repeat DEXA and Vertebral Fracture Assessment (VFA) exam in 2 years or sooner if medically necessary, to reassess this patient's status. Osteopenia: Consider a repeat DEXA in 2-3 years to reassess this patient's status, or if there is a new clinical indication. Normal: Consider a repeat DEXA in 5 years or sooner, or if there is a new clinical indication. All treatment decisions require clinical judgment and consideration of individual patient factors, including patient preferences, comorbidities, previous drug use, risk factors not captured in the FRAX model (e.g., frailty, falls, vitamin D deficiency, increased bone turnover, interval significant decline in bone density ) and possible under- or over-estimation of fracture risk by FRAX. In addition, the NOF Guide recommends that FDA-approved medical therapies be considered in postmenopausal women and men age >= 50 years with a: * Hip or vertebral (clinical or morphometric) fracture * T-score of <=-2.5 at the spine or hip * Ten-year fracture probability by FRAX of >= 3% for hip fracture or >=20% for major osteoporotic fracture. Dictated by: Jenaro Alegre M.D. on 03/19/2025 at 15:00 Approved by: Jenaro Alegre M.D. on 03/19/2025 at 15:02
== END ==
LOC: RAD 09:49
PROVIDERS: PCP Family Medicine; Referring Provider Family Medicine; Visit Provider Family Medicine
DX: M85.852 Other specified disorders of bone density and structure, left thigh (principal); Z78.0 Asymptomatic menopausal state
CPT/HCPCS: 77080

== ENCOUNTER → 2025-03-29 08:26 | Outpatient (CLI) | payer MEDICARE, OTHER, SELFPAY ==
--- NOTE | 2025-03-29 08:27 | DI.MG.S_ITS ---
MM screening mammo BI: 03/29/2025. BI-RADS: 1 CLINICAL: 64-year old female for bilateral screening mammogram. Tyrer-Cuzick lifetime risk of 7.9%. No personal or first-degree family history of breast cancer. PRIOR EXAMS 05/02/2021. MAMMOGRAPHY TECHNIQUE: 2D and 3D (tomosynthesis) digital mammographic views obtained, with additional images as needed for full coverage. Current study was also evaluated with a Computer Aided Detection (CAD) system. DENSITY C. The breasts are heterogeneously dense, which may obscure small masses. MAMMOGRAPHY FINDINGS Bilateral: No suspicious mass, asymmetry, microcalcification, or other abnormality seen. IMPRESSION: * No evidence of malignancy. RECOMMENDATIONS Bilateral * Annual screening mammography. OVERALL ASSESSMENT CATEGORY BI-RADS-1: Negative. The [employer] recommends annual screening mammography beginning at age 40 for women with average risk of breast cancer. ELECTRONICALLY SIGNED: Mara Bauer M.D. on 03/31/2025 at 11:37:56 PM PT Interpreting Station ID: [id number]
== END ==
LOC: MAMMO 08:27
PROVIDERS: PCP Family Medicine; Referring Provider Family Medicine; Visit Provider Family Medicine
DX: Z12.31 Encounter for screening mammogram for malignant neoplasm of breast (principal); R92.333 Mammographic heterogeneous density, bilateral breasts
CPT/HCPCS: 77063; 77067

== ENCOUNTER → 2025-04-08 08:30 | Outpatient (CLI) | payer MEDICARE, OTHER, SELFPAY ==
[2025-04-08 09:20] LABS: Add Manual Diff / Slide Review NO; Hematocrit 40.2 % (36-46); Hemoglobin 14.0 g/dL (12.0-16.0); Lymphocytes Absolute Auto 1700 /uL (1100-4500); Mean Corpuscular HGB Conc 34.8 % (30-36); Mean Corpuscular Hemoglobin 30.9 PG (26-34); Mean Corpuscular Volume 88.6 fL (80-100); Platelet Count 149 X10^3/uL (150-400)
[2025-04-08 09:42] LABS: Hemoglobin A1C% w Est Avg Glu 5.2 % (4.0-6.0)
[2025-04-08 09:43] LABS: Alanine Aminotransferase 16 IU/L (<35); Albumin 4.3 g/dL (3.5-5.0); Albumin Globulin Ratio 1.7 (1.0-2.8); Alkaline Phosphatase 71 U/L (38-126); Blood Urea Nitrogen 25 mg/dL (7-17); Calcium 9.3 mg/dL (8.4-10.2); Carbon Dioxide 26 mmol/L (22-32); Chloride 106 mmol/L (98-107); Cholesterol 196 mg/dL (140-199); Estimated Glomerular Filt Rate 59 mL/min (>60); Globulin 2.6 g/dL (1.7-4.1); Glucose 86 mg/dL (70-99); HDL Cholesterol 83 mg/dL (40-60); HEMOLYSIS < 15 (0-50); Potassium 3.9 mmol/L (3.4-5.1); Sodium 140 mmol/L (137-145); Total Protein 6.9 g/dL (6.3-8.2); Triglycerides 118 mg/dL (35-150)
[2025-04-08 10:14] LABS: TSH w/ Reflex to FT4 1.85 uIU/mL (0.47-4.68)
== END ==
PROVIDERS: PCP Family Medicine; Referring Provider Family Medicine; Visit Provider Family Medicine
DX: M79.89 Other specified soft tissue disorders (principal); E78.5 Hyperlipidemia, unspecified; G62.0 Drug-induced polyneuropathy; T45.1X5A Adverse effect of antineoplastic and immunosuppressive drugs, initial encounter; E03.9 Hypothyroidism, unspecified
CPT/HCPCS: 36415; 80053; 80061; 83036; 84443; 85025